=== PATIENT | female | born 1930 | race Caucasian/White ===

== ENCOUNTER 2016-09-28 21:52 | Inpatient (IN) | payer MEDICARE, MEDICAID ==
[~2016-09-28] VITALS: Ht 149.9 cm; Wt 65.5 kg
[2016-09-28 23:10] VITALS: BP 130/72; PULSE 69; RESP 18; O2SAT 97
[2016-09-28] MEDS ORDERED: Polyethylene Glycol (PEG) 17 Gm Powder PO PRN (23:45)
[2016-09-28] MEDS ORDERED: Ondansetron 2 mg/mL 2 mL Inj IVPUSH PRN (23:45)
[2016-09-28] MEDS ORDERED: Senna-Docusate 8.6-50 mg Tablet PO PRN (23:45)
[2016-09-28] MEDS ORDERED: 0.9% Sodium Chloride 1,000 ML IV SCH (23:45)
[2016-09-28] MEDS ORDERED: Atropine 1 mg/10 mL (Code) Syringe IVPUSH PRN (23:45)
[2016-09-28] MEDS ORDERED: Alum-Mag Hydrox-Simeth 30 mL Suspension PO PRN (23:45)
[2016-09-29] VITALS (8 sets, daily range): BP systolic 120–138; BP diastolic 60–73; PULSE 65–79; RESP 16–18; O2SAT 92–96
[2016-09-29] MEDS ORDERED: Heparin 5,000 Unit/mL Inj SUBQ SCH (00:30)
[2016-09-29] MEDS ORDERED: Heparin 25K Unit/500mL 0.45 NS 25,000 UNIT in IV Premix 1 EACH IV SCH (00:45)
[2016-09-29] MEDS ORDERED: Furosemide 10 mg/mL 4 mL Inj IVPUSH ONE (01:10)
[2016-09-29] MEDS ORDERED: Nitroglycerin 2% 1 Gm Ointment TOPICAL SCH (01:10)
--- NOTE | 2016-09-29 01:44 | PCM.HPMED ---
Subjective Date of Service Sep 29, 2016 Primary Provider: Admitting Physician: Fide Boudreaux DO Primary Care Physician: Yovani Attending Physician: Fide Boudreaux DO Admit Status: Direct Admit Chief Complaint: Dyspnea History of Present Illness: Very pleasant malian speaking only 85yo woman who resides at [facility] was sent to [facility] from there with increasing work of breathing. She has history of CAD, s/p stenting, CHF (type unknown), pacemaker , DM2. At [facility] she had an EKG remarkable for LBBB, borderline anterior wall ST elevations, troponin of 3.67, BNP of 2317, her vital signs were stable except for RR of 30. They tried to give her an aspirin but she choked on it and coughed it up. On admission here her vitals are T 36.4, HR 69 , RR 18 with O2 sat of 97 on 3L, BP 130/72. It is not clear if she is on home oxygen chronically. Review of Systems: Patient is tired and confused, gave a negative ROS to the nurse initially and 15 minutes later she was saying yes to almost everything. Allergies Coded Allergies: No Known Allergies (Unverified , 09/29/16) Home Medications Tylenol 325mg Refresh Optive eye drops, 1 drop TID Carvedilol 12.5mg BID Cetirizine 10mg daily Vitamin D3 1000 units daily Fluticasone 1 spray both nostrils daily Furosemide 40mg PO q2days Insulin Glargine 16units subq qhs Ipratropium bromide 15ml spray PRN Ketotifen Fumarate 5ml drops, 1 drop in each eye daily Lisinopril 5mg PO daily Lopaeramide 2mg PO daily PRN NItrofurantoin 100mg PO BID Omeprazole 20mg PO daily PMH CHF CAD HLD HTN DM2 on insulin GERD Alzheimer's Disease Surgical History s/p Stent Pacemaker Some abdominal surgery, unknown type Family History Unknown to son who is her DPOA Social History Hx Alcohol Use: No Hx Substance Use: No Hx Tobacco Use: No Living Arrangement: Intermediate Facility Exam Vital Signs Vital Sign - Last Date Time Temp Pulse Resp B/P Pulse Ox O2 Delivery O2 Flow Rate FiO2 09/29/16 00:07 72 09/28/16 23:10 36.4 18 130/72 97 Nasal Cannula 3.00 Exam General: Alert, Oriented X3, Cooperative, No Acute Distress Head: Normocephalic, atraumatic. External ears normal. Eyes: PERRLA, EOMI. Anicteric sclerae. Mouth: Mouth Normal, Mucous Membranes Moist/Cement Neck: Neck supple with full range of motion, JVD present. Chest & Lungs: Clear to auscultation bilaterally with no crackles, wheezes, or rhonchi, poor effort. Cardiovascular: Regular Rate/Rhythm, Normal S1, Normal S2, No Murmurs/Rubs/ Gallops Abdomen: Non-tender, Non-distended, No masses, Normoactive bowel tones, Soft Musculoskeletal: overview of extremities is normal Extremities: No cyanosis or clubbing. 1+ pitting edema bilaterally Neurological: Grossly Neurologically Intact, Cranial Nerves 2-12 Intact, Normal Speech Lab and Diagnostics Labs From [facility]: WBC 8.0 Hgb 11.2 Hct 35.7 Plt 208 PT 12.1 INR 1.1 Na 136 K+ 4.0 Cl 105 CO2 22 BUN 65 Cr 1.5 EGFR 33 Glc 465 Ca 8.6 LFTs nml except Alk Phos 203 Troponin 3.67 BNP 2317 UA negative X-Rays, CTs and MRIs CXR done at [facility] tonight: cardiomegaly, venous congestion 12-lead ECG SR with LBBB and borderline ST elevations in aVR, V1, V2 Assessment & Plan 85yo woman with complex medical history including CHF, CAD, HLD, HTN, DM2 presenting with Dyspnea at rest, NSTEMI with elevated troponins, possible CHF exacerbation. 1. NSTEMI, POA, with elevated troponin of 1.22 here and 3.67 at [facility]. The values from different labs do not indicate a trend necessarily. -Cardiology consulted, Dr Flores, and per his suggestions: ASA 81mg, Nitropaste 1 inch, Lasix 40mg IV, Echo ordered for morning -Cardiac Heparin protocol, statin, beta rodrick (cont carvedilol) -Dr Gamez will see patient in the morning. That is a hand off from Dr Flores. Please be sure she is aware of the patient. -NPO tonight and at breakfast awaiting Cardiology consult. Start heart healthy diabetic diet when appropriate. -Repeat Troponins ordered, CBC in morning. Lipid panel and HgbA1c. 2. Apparent chronic or acute kidney failure, POA, with BUN/Cr of 65/1.5. Family is not aware of this. Baseline is unknown. We need records from her SNF. -BMP in am. 3. CHF, POA, patient does have Lasix 40mg PO every other day. No scheduled dose today. -Echo in morning -Lasix 40mg IV. -Consider starting home Carvedilol 12.5mg PO daily 4. HTN reported, well controlled at present, awaiting Med Rec. -Hold Lisinopril now, pending receipt of baseline kidney function, BP wnl for now. 5. Diabetes Type 2, POA, only home medication is Lantus 16 units qhs -Give Lantus 8units now -Low dose correction insulin 6. POLST needs to be redone. The one in the chart from 2013 is full code and family has decided that DNR/DNI is more appropriate. 7. Dry eyes, POA. - Refresh eye drops and Ketotifen Fumarate eye drops available to patient. 8. GERD, POA, -pharmacy will replace Omeprazole. 9. Seasonal Allergies, POA -Zyrtec 10mg, Flonase, and Ipratroprium PRN continued PRN medications for nausea, heartburn, constipation: zofram, maalox, senna, miralax Pain Evaluation: Adequate Pain Control VTE Prophylaxis: Sub-Q Heparin (Unfractionated) Resuscitation Status: DNR/DNI:Do Not Resuscitate/Intubate Attending Statement The patient was seen and examined together with house staff on 09/29/2016 and I agree with the history, exam and plan as outlined in the note above. Ralph Hurley DO Sep 29, 2016 01:44 Fide Boudreaux DO Sep 29, 2016 03:46
[2016-09-29] MEDS: Sodium Chloride LOK Flush 10 mL Syringe IVFLUSH SCH ×4 (02:13→23:42)
[2016-09-29] MEDS ORDERED: Glucose 40% Oral Gel 15 Gm Tube PO PRN (02:20)
[2016-09-29 03:00] LABS: APPEARANCE,URINE CLEAR (CLEAR,HAZY); COLOR,URINE YELLOW (YELLOW); OCCULT BLOOD,URINE NEGATIVE (NEGATIVE); UROBILINOGEN,URINE NORMAL (NORMAL)
[2016-09-29] MEDS ORDERED: CETI10CA PO (03:18)
[2016-09-29] MEDS ORDERED: KETO5DRO60 BOTH_EYES (03:18)
[2016-09-29] MEDS ORDERED: CHOL100043 PO (03:18)
[2016-09-29] MEDS ORDERED: FURO-128 PO (03:18)
[2016-09-29] MEDS ORDERED: CALC500T9 PO (03:18)
[2016-09-29] MEDS ORDERED: NITR100 PO (03:18)
[2016-09-29] MEDS ORDERED: CARB15DR2 BOTH_EYES (03:18)
[2016-09-29] MEDS ORDERED: LISI-571 PO (03:18)
[2016-09-29] MEDS ORDERED: LOPE-147 PO (03:18)
[2016-09-29] MEDS ORDERED: IPRA15SP NS (03:18)
[2016-09-29] MEDS ORDERED: OMEP20CA11 PO (03:18)
[2016-09-29] MEDS ORDERED: FLUT15.88 NS (03:18)
[2016-09-29] MEDS ORDERED: INSU100V7 SUBQ (03:18)
[2016-09-29] MEDS ORDERED: ACET325T51 PO (03:18)
[2016-09-29] MEDS ORDERED: CARV12.52 PO (03:18)
[2016-09-29] MEDS ORDERED: Ipratropium 0.03% 30 mL Nasal Spray Bottle NASAL PRN (03:50)
--- NOTE | 2016-09-29 05:53 | NUR ---
Admit Pt arrived from [facility] via ambulance around 2330. Pt A&Ox3 and Croatian speaking only .Pt arrived with son, Gordon who is DPOA, at bedside and stated he was comfortable with translating. Nursing explained to son that at anytime he felt we needed an dramatic teacher to let us know. Pt seemed somewhat confused with answering some questions. Pt telling nursing she does not have any chest pain and then telling the DR that she did. Pt stated that she was having mild SOB and that was consistent. Pt son stating that she was very tired and can become delirious without any sleep. Family did not want an dramatic teacher to explain to pt all that was being done and what was going on at this time stating "it might cause her more stress than she needs" Nursing suggested that when the Day team was able to speak with the patient that the dramatic teacher be present and family exit the room so patient could fully answer questions and understand what was going on. Family agreeable to this. EKG done, Heparin gtt started at 800u/hr, 1 inch nitro paste applied and 40mg IVP lasix given. VSS and Tele SR 60's to 80's.
[2016-09-29 07:13] LABS: Mean Corpuscular Hemoglobin 27.5 pg (27.0-35.0); Mean Corpuscular Volume 88.7 fL (81-100)
[2016-09-29] MEDS: Insulin LISPRO 300 Unit/3 mL Inj SUBQ SCH ×4 (08:00→22:00)
[2016-09-29 08:06] LABS: TROPONIN T 1.45 ug/L (0.0-0.011)
[2016-09-29] MEDS: Heparin 5,000 Unit/mL Inj IVPUSH PRN ×2 (08:54→16:48)
[2016-09-29] MEDS: Pantoprazole 40 mg ER24 Tablet PO SCH (08:55)
[2016-09-29] MEDS: Nitrofurantoin Monohyd-Macrocryst 100 mg Capsule PO SCH ×2 (08:56→21:36)
[2016-09-29] MEDS: LacriLube S.O.P. 3.5 Gm Ophthalmic Ointment BOTH_EYES SCH ×3 (08:58→20:30)
[2016-09-29] MEDS: Naphazoline/Pheniramine 5 mL Ophthalmic Solution BOTH_EYES SCH ×3 (08:58→21:36)
[2016-09-29] MEDS: Fluticasone 0.05% 15 Spray/2 Gm 16 Gm Nasal Spray NASAL SCH (08:58)
--- NOTE | 2016-09-29 15:47 | NUR ---
Social Work: Initial Assessment / Readiness for d/c Data: Pt is an 85 y/o female admitted for non semi. pt's PCP is not listed. Pt's insurance is [facility] medicaid. EMR reviewed. Per rounds, pt has dementia, SPORTS BOOK BOARD ATTENDANT attempted to completed initial assessment with joy. Readmit score not listed. SPORTS BOOK BOARD ATTENDANT called pt's daughter, no answer, left a voice mail. SPORTS BOOK BOARD ATTENDANT called [facility] and spoke with RN, Lilly who states that pt has lived there since 2013 and uses a walker for mobility. Pt does not drive, has no hx of , no LTC or VA benefits, and is not a caregiver. [facility] states they can take her back when she is ready for d/c. SPORTS BOOK BOARD ATTENDANT will continue to follow. Assessment: Pt from SNF, LTC. Plan: Pt will d/c back to [facility] when medically stable, likely in 1-2 days per MD. [facility] states they can take her back when she is ready for d/c. SPORTS BOOK BOARD ATTENDANT will continue to follow. PORTILLO Adame Addendum: 09/29/16 at 1550 by LUIS ANTONIO CLAYTON Amended: Links added.
--- NOTE | 2016-09-29 16:05 | DRSVH ---
[facility] [address] [place] [address] Echocardiogram Report Name: DENIA TAYLOR MStudy Date: 09/29/2016 Height: 59 in Hospital Exam Location: [facility] Weight: 148 lb Gender: Female BSA: 1.6 m2 : 1930 Age: 85 yrs BP: 122/72 mmHg Reason For Study: Elevated Troponin, SOB Ordering Physician: HOSPITALIST SVHPerformed By: Lobito Rose Referring Physician: AMBER HUNTLEY Interpretation Summary The left ventricle is moderately dilated. Left ventricular systolic function is severely reduced. The ejection fraction is estimated to be 20-25%. There is moderate to severe global hypokinesis with akinesis along the inferior and inferolateral wall. Assessment of diastolic parameters suggests a pseudonormalization pattern, consistent with elevated filling pressures. The E/E' ratio is severely increased, suggesting possible increased filling pressures. The right ventricle is borderline dilated. There is a pacemaker lead in the right ventricle. Right ventricular systolic function is moderately reduced. The right ventricular systolic pressure is estimated at 67 mmHg assuming a right atrial pressure of 8 mm Hg. The left atrium is moderately dilated. The right atrium is mildly dilated. There is severe mitral regurgitation. There is mild to moderate aortic regurgitation. There is no other significant valvular heart disease. The aortic root is normal size. Procedure: A two-dimensional transthoracic echocardiogram with color flow and Doppler was performed. The study quality was technically adequate. There is no prior echocardiogram noted for this patient. The patient was in normal sinus rhythm during the exam. The heart rate ranged between 70-75 bpm during the study. Left Ventricle: The left ventricle is moderately dilated. Left ventricular wall thickness is at the upper limits of normal. Left ventricular systolic function is severely reduced. The ejection fraction is estimated to be 20- 25%. There is moderate to severe global hypokinesis of the left ventricle. There is moderate to severe global hypokinesis with akinesis along the inferior and inferolateral wall. Assessment of diastolic parameters suggests a pseudonormalization pattern, consistent with elevated filling pressures. The E/E' ratio is severely increased, suggesting possible increased filling pressures. Right Ventricle: The right ventricle is borderline dilated. There is a pacemaker lead in the right ventricle. Right ventricular systolic function is moderately reduced. Atria: The left atrium is moderately dilated. The right atrium is mildly dilated. There is a catheter/pacemaker lead seen in the right atrium. The interatrial septum is intact with no evidence for an atrial septal defect. Mitral Valve: The mitral valve leaflets appear borderline thickened, but open well. There is severe mitral regurgitation. Aortic Valve: The aortic valve is trileaflet. The aortic valve is slightly calcified. There is mild to moderate aortic regurgitation. Tricuspid Valve: The tricuspid valve is not well visualized, but is grossly normal. There is mild tricuspid regurgitation. The right ventricular systolic pressure is estimated at 67 mmHg assuming a right atrial pressure of 8 mm Hg. Pulmonic Valve: The pulmonic valve leaflets are thin and pliable; valve motion is normal. There is mild pulmonic regurgitation. There is no other significant valvular heart disease. Great Vessels: The aortic root is normal size. The dimensions of the ascending aorta are normal. The pulmonary artery is normal size. The IVC is dilated (diameter is greater than 2.1 cm) yet it collapses greater than 50% with a sniff. This suggests a right atrial pressure of 8 mm Hg. Pericardium/ Pleura There is no pericardial effusion. There is no pleural effusion. MMode/2D Measurements & Calculations LVIDd: 6.0 cm RA long axis LVOT diam: 1.9 cm LVIDs: 5.3 cm LA A2 area: 20.5 cm Ao root diam FS: 12.8 % LA A4 area: 19.3 cm RA area IVSd: 1.00 cm LA length (vol) asc Aorta Diam LVPWd: 0.94 cm : 18.5 cm LA vol: 71.1 ml RA vol Ao Arch Diam (Prox LA vol index : 56.3 ml Trans): 2.8 cm RA : 34.7 mm2 IVC diam: 2.2 cm LV mott. diameter/BSA LV sys. diameter/BSA RVD1 (basal) (cm/m^2): 3.7 (cm/m^2): 3.2 Doppler Measurements & Calculations Ao V2 max MV E max brian MV E/A: 1.5 TR max brian : 103.6 cm/sec : 112.5 cm/sec Med Peak E' Brian : 383.2 cm/sec Ao max P.3 mmHgMV A max brian TR max PG Ao mean PG : 74.1 cm/sec E/E' med: 48.9 : 58.7 mmHg Lat Peak E' Brian PA V2 max LVOT Max Brian MR ERO: 0.11 cm2 : 54.6 cm/sec : 61.8 cm/sec E/E' lat: 68.8 PA mean PG E/e' average : 0.63 mmHg HARLAN(I,D): 1.5 cm sev ratio: 0.52 AI P1/2t : 323.9 msec AI dec slope : 277.9 cm/s2c MV dec time Ao V2 mean LV V1 max PG MR flow rate : 0.17 sec : 68.7 cm/sec : 53.4 cm3/sec Ao V2 VTI: 19.6 cm LV V1 VTI MR PISA radius HARLAN(V,D): 1.7 cm2 : 10.1 cm PA V2 mean HARLAN indexed to BSA : 37.6 cm/sec (cm^2/m^2): 0.90 PA pr(Accel) : 43.6 mmHg Reading Physician:ZOEY
[2016-09-29] MEDS: Insulin GLARgine 100 Unit/mL Syringe SUBQ SCH (21:35)
[2016-09-30] VITALS (7 sets, daily range): BP systolic 122–144; BP diastolic 48–70; PULSE 63–72; RESP 16–24; O2SAT 94–98
--- NOTE | 2016-09-30 02:35 | CONS ---
[address] [address] CONSULTATION REPORT PATIENT: DENIA TAYLOR : 1930 MR#: [id number] ADMIT: 09/28/2016 JOB ID: [id number] DATE OF SERVICE: 09/29/2016 CHIEF COMPLAINT: Cough and hypoxia. HISTORY OF PRESENT ILLNESS: The patient is an 85-year-old woman. She lives in memory care facility, [facility]. She is mostly limited by dementia. The staff at [facility] noted worsening shortness of breath, hypoxemia and cough. They referred her to [facility]. Over there, radiograph demonstrated cardiomegaly and pulmonary edema, and she was transferred to [facility] for further evaluation and management. PAST MEDICAL HISTORY: 1. The patient does not know her past medical history. She is accompanied today by her son, Dewayne. Son says that she has been diagnosed with unknown heart problems in [place] and underwent dual-chamber ICD implant over there. Subsequently, she has been closely monitored by Dr. Lino. 2. Diabetes on insulin. 3. Hypertension. 4. Hyperlipidemia. 5. Dementia. 6. Unknown abdominal surgery. FAMILY HISTORY: Son does not know. SOCIAL HISTORY: Does not smoke. Does not drink. Lives in [facility], [facility]. ROS: unable to obtain due to confusion HOME MEDICATIONS: Obtained from medication administration record, include: 1. Lasix 40 mg by mouth every other day. 2. Carvedilol 12.5 mg twice a day. 3. Lisinopril 5 mg daily. 4. Lantus 15 units under the skin daily. 5. Zyrtec. 6. Omeprazole 20 mg daily. 7. Macrobid. CURRENT MEDICATIONS HERE IN THE HOSPITAL: 1. Lipitor 40 mg daily. 2. Carvedilol 12.5 mg twice a day. 3. Nitrofurantoin 100 mg twice a day. 4. Lantus 8 units every evening. 5. Subcu heparin. ACS protocol. 6. Lasix 40 mg by mouth every other day. 7. Aspirin 81 mg daily. 8. Protonix 40 mg daily. PHYSICAL EXAMINATION: A very elderly, pleasant woman, lying flat in bed. No apparent distress. Temperature 37 degrees. Blood pressure 120/68, up to 138/71. Pulse 65, up to 79 beats per minute. Satting 92% to 96% on room air. Eyes: No scleral icterus. Neck: Supple. No carotid bruits. Heart normal S1, S2. No murmurs, rubs, or gallops. Lungs: Clear to auscultation anteriorly. Abdomen: Soft, positive bowel sounds. No hepatosplenomegaly. Extremities: Warm, well perfused. No clubbing, cyanosis, edema. Skin: No rashes or lesions. Radiograph from [facility] was reviewed. On personal review, it demonstrates cardiomegaly, bilateral interstitial opacities and dual-chamber ICD. Echocardiogram September 29 shows EF about 20% to 25% with moderate to severe global hypokinesis, akinesis along the inferior and inferolateral wall, stage II diastolic dysfunction, borderline RV dilation, RV estimated pulmonary artery systolic pressure 67 mmHg, assuming right atrial pressure 8 mmHg, severe mitral regurgitation, mild to moderate aortic regurgitation. EKG shows left bundle-branch block. Her creatinine is 1.3. She is mildly anemic, hematocrit is 35%. Troponin T was most recently 1.45. Lipids at goal. Total cholesterol 117, triglycerides 79, HDL 36, LDL 65. ASSESSMENT AND PLAN: This is an 85-year-old woman who comes in with left bundle-branch block of unknown chronicity and elevated troponin in the setting of what sounds like previously documented heart problem with obviously either history of [id number] cardiac arrest or cardiomyopathy severe enough where internal cardioverter-defibrillator implant for primary prevention was indicated. The property and equipment clerk is working hard to get the records from Dr. Lino's office so I can understand a little bit more about her cardiovascular history. 1. [id number] myocardial infarction: It is unknown whether left bundle-branch block is old or new. Will request prior EKG. Either way, left bundle-branch block is no longer STEMI criteria. She has significantly elevated troponin, but given her dementia not a good candidate for interventional therapy. I agree with medical therapy. Aspirin, Lipitor, heparin drip for 48 hours, but it can be discontinued in the morning on October 01, 2016. 2. Cardiomyopathy: She appears dry and euvolemic on exam. Continue Lasix, carvedilol. I see that lisinopril is on hold due to renal insufficiency and will have a low threshold to restart it depending on how that looks. 3. Diabetes: Closely monitored by hospitalist physician. Diabetes is uncontrolled. Most recent hemoglobin A1c is 9.5%. 4. Hyperlipidemia: Lipids are at goal. Even though it does not appear that she was on a statin as an outpatient, I agree with initiating statin, but I think 40 mg daily might be a little too strong. I think 10 mg daily is a good option for her. 5. Device management: It is unknown what brand device she has. Hopefully, once we get those records from Dr. Lino. We will be able to have a better idea of the best way to manage her device and whether the device needs to be interrogated depending on when it was last checked. Thank you very much for the opportunity to evaluate this patient. HIRO
--- NOTE | 2016-09-30 05:39 | NUR ---
NOC PT was oriented and cooperative at start of shift. However, as the night went on pt has been increasingly restless and less cooperative. Her daughter stayed and has been assisting with care. PT voids in BSC. Noted to have dyspnea with any exertion. PT is on 2lNC. Lung are diminished at bases. Pt is in NSR with OVCD and occasional pvc's noted. BG at HS was 131. PT is on heparin gtt and we are waiting on most recent lab value to adjust rate if needed. PT denies any CP or general pain. HEr IV is covered because of her restlessness and slight pulling of tubes. PT has still not had BM to [facility]. Will CTM.
[2016-09-30] MEDS: Pantoprazole 40 mg ER24 Tablet PO SCH (06:01)
[2016-09-30] MEDS: Insulin LISPRO 300 Unit/3 mL Inj SUBQ SCH ×4 (08:00→21:38)
[2016-09-30 10:27] LABS: BASOPHILS % (AUTO) 0.3 % (0-3); EOSINOPHILS % (AUTO) 3.1 % (0-5); MONOCYTES % (AUTO) 7.9 % (4-12); Mean Corpuscular Hemoglobin 27.8 pg (27.0-35.0); Mean Corpuscular Volume 88.6 fL (81-100); NEUTROPHILS % (AUTO) 70.5 % (40-74); Platelet Count 251 bil/L (150-400)
[2016-09-30] MEDS: LacriLube S.O.P. 3.5 Gm Ophthalmic Ointment BOTH_EYES SCH ×3 (10:39→20:30)
[2016-09-30] MEDS: Sodium Chloride LOK Flush 10 mL Syringe IVFLUSH SCH ×3 (10:40→21:39)
[2016-09-30] MEDS: Naphazoline/Pheniramine 5 mL Ophthalmic Solution BOTH_EYES SCH ×2 (10:40→20:30)
[2016-09-30] MEDS: Fluticasone 0.05% 15 Spray/2 Gm 16 Gm Nasal Spray NASAL SCH (10:40)
[2016-09-30] MEDS: Nitrofurantoin Monohyd-Macrocryst 100 mg Capsule PO SCH (10:41)
--- NOTE | 2016-09-30 14:14 | DRSVH ---
PROCEDURE: X-RAY CHEST ONE VIEW, PORTABLE ([id number]) INDICATIONS: sob, cough TECHNIQUE: One view of the chest was acquired. COMPARISON: [facility], , CHEST 1 VIEW, 08/18/2015, 3:52. FINDINGS: Surgical changes and devices: Cardiac pacemaking device with dual chamber leads appears normal. Lungs and pleura: No pleural effusions or pneumothorax. Lungs are abnormal with a mild interstitial prominence that now appears overlain by mild pulmonary edema. Mediastinum: Mediastinal contours appear normal. Heart size is mildly enlarged, compared to the odette or study from August of last year. Bones and chest wall: No suspicious bony lesions. Overlying soft tissues appear unremarkable. IMPRESSION: Chronic interstitial prominence with mild acute CHF causing mild pulmonary edema to be rowe perimposed. Pacemaking device and dual chamber leads appear normal Dictated by: Joseph Skelton M.D. on 09/30/2016 at 14:09 Approved by: Joseph Skelton M.D. on 09/30/2016 at 14:12
--- NOTE | 2016-09-30 14:33 | PCM.PNMED ---
Subjective Date of Service Sep 30, 2016 Subjective Patient slept through the night. Family is by bedside. Patient has worsening cough and shortness of breath, otherwise no new problems or concerns. Exam Vital Signs Vital Sign - Last Date Time Temp Pulse Resp B/P Pulse Ox O2 Delivery O2 Flow Rate FiO2 09/30/16 11:07 36.4 68 16 134/70 95 Nasal Cannula 2.00 Intake and Output 09/29/16 09/29/16 09/30/16 Cumulative From/Thru 15:00 23:00 07:00 09/28/16 23:09 - 09/30/16 05:55 Intake Total 460 ml 218 ml 678 ml Output Total 1150 ml 200 ml 2050 ml Balance -690 ml 18 ml -1372 ml Intake Oral 300 ml 0 ml 300 ml IV Total 160 ml 218 ml 378 ml Output Urine Total 1150 ml 200 ml 2050 ml # Voids 1 1 # Bowel Movements 0 0 Exam General: patient is comfortably sleeping in bed this morning in no acute distress Neck: Neck supple, jugulo venous distention present. Chest & Lungs: Mild wheezing anteriorly. Cardiovascular: Regular Rate/Rhythm, No Murmurs/Rubs/Gallops Abdomen: Non-tender, Non-distended, No masses, Normoactive bowel tones, Soft Extremities: No cyanosis or clubbing. 1+ pitting edema bilaterally Lab and Diagnostics Result Diagram: 09/30/16 1015 09/30/16 1015 X-Rays, CTs and MRIs CXR done at [facility] tonight: cardiomegaly, venous congestion 12-lead ECG SR with LBBB and borderline ST elevations in aVR, V1, V2 Cardiac Echo Impressions Echocardiogram Report Interpretation Summary The left ventricle is moderately dilated. Left ventricular systolic function is severely reduced. The ejection fraction is estimated to be 20-25%. There is moderate to severe global hypokinesis with akinesis along the inferior and inferolateral wall. Assessment of diastolic parameters suggests a pseudonormalization pattern, consistent with elevated filling pressures. The E/E' ratio is severely increased, suggesting possible increased filling pressures. The right ventricle is borderline dilated. There is a pacemaker lead in the right ventricle. Right ventricular systolic function is moderately reduced. The right ventricular systolic pressure is estimated at 67 mmHg assuming a right atrial pressure of 8 mm Hg. The left atrium is moderately dilated. The right atrium is mildly dilated. There is severe mitral regurgitation. There is mild to moderate aortic regurgitation. There is no other significant valvular heart disease. The aortic root is normal size. Reading Physician:PM Assessment & Plan Vane Clarke is a 85 year old woman with complex medical history including congestive heart failure, coronary artery disease, hyperlipidemia, hypertension , diabetes mellitus type 2 presenting with dyspnea at rest, NSTEMI with elevated troponins, possible congestive heart failure exacerbation. 1. Mlr-TP-sdjkzadqg myocardial infarction, present on admission. Active -Elevated troponin of 1.22 here and 3.67 at [facility]. The values from different labs do not indicate a trend necessarily -Given her dementia, not a good candidate for interventional therapy -Cardiology consulted, continue aspirin, heparin drip x 48 hours total and start lipitor -ECHO revealed ejection fraction of 20-25% and moderate to severe global hypokinesis with akinesis along the inferior and inferolateral wall 2. Chronic or acute kidney failure, present on admission. Improved -Improved BUN and creatinine today -Continue to monitor 3. Cardiomyopathy, present on admission. Stable -Patient euvolemic now -Continue home carvedilol and lasix -Restart lisinopril tomorrow id renal function improves 4. Hypertension, chronic. Stable -Well controlled at present -Consider restarting lisinopril when kidney function back to normal baseline 5. Diabetes mellitus type 2, present on admission. Active -On lantus 16 units at home before bedtime -Continue low dose correction insulin -A1c 9.5% 6. Hyperlipidemia, chronic. Stable -Lipids are at goal even though patient is not on statin therapy -Start lipitor 10 mg daily by mouth 7. Dry eyes, present on admission. Stable - Refresh eye drops and ketotifen fumarate eye drops available to patient 8. Gastroesophageal reflex, present on admission. Stable -Pharmacy will replace Omeprazole 9. Seasonal Allergies, present on admission. Stable -Zyrtec 10mg, flonase, and ipratroprium as needed 10. POLST needs to be redone. The one in the chart from 2013 is full code and family has decided that DNR/DNI is more appropriate PRN medications for nausea, heartburn, constipation: zofram, maalox, senna, miralax Disposition: SNF tomorrow Pain Evaluation: Adequate Pain Control VTE Prophylaxis: Sub-Q Heparin (Unfractionated) Resuscitation Status: DNR/DNI:Do Not Resuscitate/Intubate Attending Statement The patient was seen and examined together with Dr. Vieira on 09/30/2016 and I agree with the history, exam and plan as outlined in the note above. . Mary Kay Vieira DO Sep 30, 2016 14:33 Santi Hand MD Oct 01, 2016 10:00
--- NOTE | 2016-09-30 16:23 | NUR ---
Blood Sugar With held am insulin with a blood glucose of 200 due to the pt being so sleepy and not wanting to eat. Rechecked Blood sugar for lunch and it was 128.
[2016-09-30] MEDS ORDERED: Furosemide 10 mg/mL 4 mL Inj IVPUSH ONE (19:30)
--- NOTE | 2016-09-30 21:01 | PROG NOTE ---
[address] [address] PROGRESS NOTE PATIENT: DENIA TAYLOR : 1930 MR#: [id number] ADMIT: 09/28/2016 JOB ID: [id number] DATE: 09/30/2016 CHIEF COMPLAINT: Hypoxia and shortness of breath. SUBJECTIVE: The patient's breathing is improved. She is able to lay flat. She is quite sleepy. She did not want to eat. She is accompanied today by her daughter, Jazzy, and another daughter whose name escapes me at the moment. They say that the patient is closely monitored by Dr. Lino and that she has been getting all her medications at the [facility] where she resides. OBJECTIVE: Vital signs: Temperature 36.7, blood pressure 122/48, up to 134/70, pulse 63 up to 72 beats per minute, satting 94% to 99% on 2 liters nasal cannula. I's and O's. She is out more than in by 1.3 L and her weight based on the built-in scale is stable. CURRENT MEDICATIONS: 1. Aspirin 81 mg daily. 2. Lipitor 10 mg daily. 3. Lasix 40 mg by mouth every other day. 4. Heparin drip per ACS protocol. 5. Carvedilol 12.5 mg twice a day. 6. Lisinopril 5 mg daily. 7. Lantus 8 units every evening. 8. Protonix 40 mg daily. EXAM: Elderly woman lying flat in bed asleep in no apparent distress. Eyes: No scleral icterus. Neck is supple. No carotid bruits. Heart: Normal S1, S2. No murmurs. Lungs: Clear to auscultation anteriorly. Abdomen is soft, positive bowel sounds. No hepatosplenomegaly. Extremities: Mild edema bilaterally. ASSESSMENT AND PLAN: This is a delightful, 85-year-old woman with multiple cardiovascular conditions that we just learned about from Dr. Lino's detailed notes. 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 She also has old left bundle-branch block, moderate mitral regurgitation, history of right lower lobe pulmonary embolism, previously on warfarin but no longer on its own. In terms of device management, I did a device check. It turns out this is a Biotronik dual-chamber ICD which was implanted in [place] in 2011. I do not believe this is a biventricular cardiac resynchronization therapy device. Briefly, this is a Lumax 540 device. She is programmed in DDD mode with lower rate limit of 60 beats per minute, upper tracking rate 130 beats per minute. I changed it to DDDR mode, because she was getting a little bradycardic here and, historically, she has been 100% atrially sensed and 97% RV sensed and 3% RV paced. Her histogram shows that the heart rate is in the 60-70 beats per minute range for the most part. She has three tachytherapy zones, zone for rate 150-162 beats per minute is just monitoring zone, 162-188 beats per minute has three bursts, three ramps and then shocks. VF zone for rate greater than 188 beats per minute shows bursts and then multiple shocks. In terms of coronary artery disease, the patient will be managed medically. Her troponin T was most recently 1.45 in the setting of normal kidney function. The patient had evidence of volume overload initially, but she seems to have responded favorably to brief therapy with Lasix and she is not having any distress right now. I do not think she is a good interventional candidate due to her memory problems, and she has lived in [facility] a long time. Her lipids were at goal even though she is not on statins. But, technically since she did have coronary artery disease, I think it is reasonable to start her on low-dose statin Lipitor 10 mg daily. Her transaminases are normal. Left bundle branch block-so I think that this patient in hindsight may have benefitted from cardiac resynchronization therapy. Now, I think her prognosis is informed more by her cognitive impairment and less so by her cardiovascular issues. I think as an outpatient she can discuss with her primary beater room helper whether her device needs to be upgraded, but my impression is probably not. Cardiomyopathy-patient has, I think, a combination of ischemic and nonischemic cardiomyopathy. Her most recent echocardiogram performed September 29 demonstrated ejection fraction of 20-25% with inferior and inferolateral akinesis, stage 2 diastolic dysfunction, borderline RV enlargement. Pulmonary artery systolic pressure at 67 mmHg, assuming a right atrial pressure of 8 mmHg and she also has associated severe mitral regurgitation in the setting of annular dilation. Her left ventricle is moderately dilated with left ventricular end-diastolic dimension of 6 cm. She is on excellent outpatient medical regimen including loop diuretic, carvedilol, lisinopril and will continue these medications in the hospital. She will complete her 48 hour course of IV heparin tomorrow morning, October 01, 2016, and we can discharge her at that time. In terms of volume status, she appears to be euvolemic. She is on Lasix p.o. only. Device management: Patient has not had a device check since January 2016. It sounds like the family and patient were instructed to do a device check, but they just had not gotten a chance to bring mom in. We talked about how remote checks can help her management in the future. We also talked about her wishes with respect to tachytherapy and whether the family feels like she truly would like to have ICD discharges if she develops ventricular tachycardia. Their initial reaction was to go ahead and turn off tachytherapy, but I counseled them against it. I advised that I think it would be better to discuss it with Dr. Lino as an outpatient. I did not do capture threshold testing or sensitivity check. I defer further detailed device checks to primary beater room helper, Dr. Lino. History of hyperkalemia. Apparently, drug titration in the past was limited by hyperkalemia which is why she is not on spironolactone. She is able to tolerate lisinopril 5 mg daily as an outpatient at home and will continue that. Thank you very much for the opportunity to participate in her care. I will go ahead and sign off at this time, but I am available for questions.
--- NOTE | 2016-09-30 21:04 | PROCED ---
[address] [address] PROCEDURE NOTE PATIENT: DENIA TAYLOR : 1930 MR#: [id number] ADMIT: 09/28/2016 JOB ID: [id number] DATE OF SERVICE: 09/30/2016 POSTOPERATIVE DIAGNOSIS(ES): PREOPERATIVE DIAGNOSIS(ES): SURGEON: Betty Gamez MD INDICATIONS FOR DEVICE CHECK: This is an 85-year-old woman admitted with acute decompensated heart failure and she happens to have a Biotronik dual-chamber ICD. Briefly, this is a Blue Max 540 ICD implanted October 16, 2011 and most recently checked in January 2016. She is 100% A sensed. She is 97% V sensed and 3% V paced. Histogram is normal with a rate between 60 and 70. Her mode is VDD with lower rate limit 60 beats per minute, upper tracking rate 130 beats per minute. I changed it to DDDR because she is having a little bit of bradycardia in the hospital, and I have adjusted her AV delay from 130-180 to 150-200 to minimize the risk of RV pacing. Her atrial lead sensitivity is 0.3 mV. Her output is 2.8 V at 0.4 msec. Ventricular lead sensitivity is programmed at 0.8 mV. Her output is 2 V at 0.4 msec. She has three tachytherapy zones, 150-162 beats per minute at monitoring zone, 162-188 beats per minute VT zone with three burst, three ramps and defibrillation shocks and VF zone for rate greater than 188 beats per minute with a single burst followed by shocks. ADJUSTMENTS MADE: I changed the mode from VDD to DDDR. The family had serious reservations about leaving tachytherapy on, but I encouraged them to leave it alone for now and just discuss it with primary electrician control equipment as an outpatient. Thank you very much for the opportunity to participate in her care.
[2016-09-30] MEDS: Insulin GLARgine 100 Unit/mL Syringe SUBQ SCH (21:38)
[2016-10-01] VITALS (8 sets, daily range): BP systolic 131–149; BP diastolic 61–85; PULSE 60–76; RESP 16–24; O2SAT 95–99
[2016-10-01 03:49] LABS: Mean Corpuscular Hemoglobin 27.5 pg (27.0-35.0); Mean Corpuscular Volume 88.8 fL (81-100)
--- NOTE | 2016-10-01 06:08 | NUR ---
Mentation At approx. 1900, call light on and pt ambulated to [facility] with 1PA to urinate; stable, responsive, and cooperative with care. After situating patient back in bed from [facility], pt fell asleep and became nonrousable despite interventions for rest of shift. HS care provided while patient sleeping; PO meds held r/t pt unable to wake up. Pt nonresponsive to strong stimuli, though sleep-talks and moves in bed. VSS, pt breathing stably. At approx. 0430, pt began to have episode of intense sleep-talking including screaming and agitation; per daughter, pt was distressed due to thinking her children were little again and being punished. Resolved after approx. 30min. Pt incontinent of urine x2 to brief this shift. Cold to touch, but refuses blankets.
[2016-10-01] MEDS: Insulin LISPRO 300 Unit/3 mL Inj SUBQ SCH ×4 (08:00→21:09)
[2016-10-01] MEDS: LacriLube S.O.P. 3.5 Gm Ophthalmic Ointment BOTH_EYES SCH ×3 (08:15→20:30)
[2016-10-01] MEDS: Pantoprazole 40 mg ER24 Tablet PO SCH (08:15)
[2016-10-01] MEDS: Fluticasone 0.05% 15 Spray/2 Gm 16 Gm Nasal Spray NASAL SCH (08:16)
[2016-10-01] MEDS: Naphazoline/Pheniramine 5 mL Ophthalmic Solution BOTH_EYES SCH ×2 (08:16→20:30)
[2016-10-01] MEDS: Sodium Chloride LOK Flush 10 mL Syringe IVFLUSH SCH ×3 (08:16→21:10)
--- NOTE | 2016-10-01 08:32 | NUR ---
Confusion Pt alert this morning and talking with son but is confused and not making sense. She will not follow my commands or some of the commands asked by her son. Also noted a slight left side lip droop and left arm weakness when asked to squeeze my fingers. I do not know if this is because she thinks shes sqeezing or if she isn't cooperating. Discussed with Resident my concerns and she will round with team shortly. Heparin drip still running at 875 un/hour, PTT is therapeutic. Son at bedside. Vitals stable and blood glucose is 137. Will continue to monitor.
--- NOTE | 2016-10-01 10:30 | PCM.PNMED ---
Subjective Date of Service Oct 01, 2016 Subjective Patient remains confused for the most night and this morning. She is awake, however she does not follow commands and does not make sense. Her speech is slurred according to her son. A slight left side lip droop noted this morning during rounds. Heparin drip still running at 875 un/hour, PTT is therapeutic. Son at bedside. Vitals stable and blood glucose is 137. Exam Vital Signs Vital Sign - Last Date Time Temp Pulse Resp B/P Pulse Ox O2 Delivery O2 Flow Rate FiO2 10/01/16 08:48 36.6 69 20 147/67 98 Nasal Cannula 2.00 Intake and Output 09/30/16 09/30/16 10/01/16 Cumulative From/Thru 15:00 23:00 07:00 09/28/16 23:09 - 10/01/16 06:19 Intake Total 717 ml 210 ml 1605 ml Output Total 750 ml 200 ml 3000 ml Balance -33 ml 10 ml -1395 ml Intake Oral 520 ml 0 ml 820 ml IV Total 197 ml 210 ml 785 ml Output Urine Total 750 ml 200 ml 3000 ml # Voids 4 5 # Bowel Movements 0 Exam General: patient is awake but confused and does not follow commands Neck: Neck supple Chest & Lungs: Mild wheezing anteriorly Cardiovascular: Regular Rate/Rhythm, No Murmurs/Rubs/Gallops Abdomen: Non-tender, Non-distended, Normoactive bowel tones, Soft Extremities: No cyanosis or clubbing. No edema noted Neuro: Slight left side lip droop, slurred speech, moving both upper extremities Lab and Diagnostics Result Diagram: 10/01/16 0336 10/01/16 0336 X-Rays, CTs and MRIs CXR done at [facility] tonight: cardiomegaly, venous congestion 12-lead ECG SR with LBBB and borderline ST elevations in aVR, V1, V2 Cardiac Echo Impressions Echocardiogram Report Interpretation Summary The left ventricle is moderately dilated. Left ventricular systolic function is severely reduced. The ejection fraction is estimated to be 20-25%. There is moderate to severe global hypokinesis with akinesis along the inferior and inferolateral wall. Assessment of diastolic parameters suggests a pseudonormalization pattern, consistent with elevated filling pressures. The E/E' ratio is severely increased, suggesting possible increased filling pressures. The right ventricle is borderline dilated. There is a pacemaker lead in the right ventricle. Right ventricular systolic function is moderately reduced. The right ventricular systolic pressure is estimated at 67 mmHg assuming a right atrial pressure of 8 mm Hg. The left atrium is moderately dilated. The right atrium is mildly dilated. There is severe mitral regurgitation. There is mild to moderate aortic regurgitation. There is no other significant valvular heart disease. The aortic root is normal size. Reading Physician:PM Assessment & Plan Vane Clarke is a 85 year old woman with complex medical history including congestive heart failure, coronary artery disease, hyperlipidemia, hypertension , diabetes mellitus type 2 presenting with dyspnea at rest, NSTEMI with elevated troponins, possible congestive heart failure exacerbation. 1. Confusion and slurred speech, not present on admission. Active -Suspect ARSENIO, CVA, UTI -CT brain without contrast -UA pending 2. Dtx-CZ-visxicqrd myocardial infarction, present on admission. Active -Elevated troponin of 1.22 here and 3.67 at [facility]. The values from different labs do not indicate a trend necessarily -Given her dementia, not a good candidate for interventional therapy -Cardiology consulted, continue aspirin, heparin drip stopped after 48 hours. -Continue lipitor 10 mg daily -ECHO revealed ejection fraction of 20-25% and moderate to severe global hypokinesis with akinesis along the inferior and inferolateral wall 3. Chronic or acute kidney failure, present on admission. Improved -Improved BUN and creatinine today -Continue to monitor 4. Cardiomyopathy, present on admission. Stable -Patient euvolemic now -Continue home carvedilol and lasix -Restart lisinopril tomorrow id renal function improves 5. Hypertension, chronic. Stable -Well controlled at present -Consider restarting lisinopril when kidney function back to normal baseline 6. Diabetes mellitus type 2, present on admission. Active -On lantus 16 units at home before bedtime -Continue low dose correction insulin -A1c 9.5% 7. Leukocytosis, not present on admission. Active -Suspected UTI -UA ordered 8. Hyperlipidemia, chronic. Stable -Lipids are at goal even though patient is not on statin therapy -Start lipitor 10 mg daily by mouth 9. Dry eyes, present on admission. Stable - Refresh eye drops and ketotifen fumarate eye drops available to patient 10. Gastroesophageal reflex, present on admission. Stable -Pharmacy will replace Omeprazole 11. Seasonal Allergies, present on admission. Stable -Zyrtec 10mg, flonase, and ipratroprium as needed 12. POLST needs to be redone. The one in the chart from 2013 is full code and family has decided that DNR/DNI is more appropriate PRN medications for nausea, heartburn, constipation: zofram, maalox, senna, miralax Disposition: SNF tomorrow pending clinical course VTE Prophylaxis: Sub-Q Heparin (Unfractionated) Resuscitation Status: DNR/DNI:Do Not Resuscitate/Intubate Attending Statement The patient was seen and examined together with House Staff/Resident on 10/01/16 and I agree with the history, exam and plan as outlined in the note above. Mary Kay Vieira DO Oct 01, 2016 10:30 Sg Zepeda Oct 05, 2016 19:19
--- NOTE | 2016-10-01 10:55 | NUR ---
TERENCE: Patient currently out of room for procedure, follow up later in day/ tomorrow
--- NOTE | 2016-10-01 11:05 | DRSVH ---
PROCEDURE: CT BRAIN WITHOUT CONTRAST ([id number]) INDICATIONS: 85 year-old female with slurred speech. TECHNIQUE: Noncontrast 4.5 mm thick angled axial sections acquired from the foramen magnum to the vertex, with c oronal reformats. COMPARISON: [facility], CT, HEAD WITHOUT CONTRAST, 08/18/2015, 3:38. [facility], RG, CT HEAD W/O CONTRAST, 04/27/2014, 16:44. FINDINGS: Image quality: Excellent. CSF spaces: Basal cisterns are patent. No extra-axial fluid collections. Ventricles are normal in size and shape. Brain: No midline shift. 2.8 x 2.2 x 1.9 cm hyperdense extracranial mass is again noted adjacent to the medial right frontal lobe, with nearby white matter edema. There is background periventricular an d deep white matter chronic small vessel ischemic change. There is intracranial internal carotid marya ry atherosclerosis. Skull and face: Calvarium and visualized facial bones are intact, without suspicious lesions. Anteri or interhemispheric falx ossification is again noted. Sinuses: Visualized sinuses and mastoids are clear. IMPRESSION: 1. No acute intracranial abnormalities. Periventricular and deep white matter chronic small vessel is chemic change. 2. 2.2 x 2.8 x 1.9 cm meningioma adjacent to the medial right frontal lobe appears slightly larger si nce August 2016. Dictated by: Addison Bean M.D. on 10/01/2016 at 10:59 Approved by: Addison Bean M.D. on 10/01/2016 at 11:04
--- NOTE | 2016-10-01 12:26 | PROG NOTE ---
[address] [address] PROGRESS NOTE PATIENT: DENIA TAYLOR : 1930 MR#: [id number] ADMIT: 09/28/2016 JOB ID: [id number] DATE: 10/01/2016 CHIEF COMPLAINT: Altered mental status. SUBJECTIVE: The patient was doing fine yesterday, but this morning she developed worsening mental status changes and confusion. She had imaging which showed slightly progressed meningioma in the left superior portion of the brain but no evidence of acute stroke. There is concern that she has urinary tract infection, and I pointed out that she just completed a course of antibiotic therapy for urinary tract infection yesterday. OBJECTIVE: Vital signs reviewed, afebrile. Patient is delirious, confused. She is talking about hot sauce and how she needs to lie down, yet she is already lying down. Welsh interpretation is provided by her son, Dewayne. Eyes: No scleral icterus. Neck is supple. No carotid bruits. Heart: Normal S1, S2. No murmurs. Lungs with diminished breath sounds at the left lung base anteriorly but difficult to obtain good exam because patient is confused and is not following instructions. Abdomen is soft with positive bowel sounds, and she has trace bilateral lower extremity edema. Telemetry was reviewed, and she had a brief five beat run of nonsustained VT yesterday at 9:00 p.m. It appears to have been asymptomatic. Brain CT scan I personally reviewed. It showed slightly enlarged meningioma about 2.61 cm diameter. No evidence of bleeding or acute stroke. Of course, ability to performed MRI is limited by the [employer] ICD. CURRENT MEDICATIONS: 1. Aspirin 81 mg daily. 2. Lipitor 10 mg daily. 3. Lasix 40 mg by mouth every other day. Of note, she had IV Lasix yesterday. 4. Lisinopril 5 mg daily. 5. Carvedilol 12.5 mg twice a day. 6. Protonix 40 mg daily. 7. Nitrofurantoin was completed yesterday. LABORATORY DATA: Labs today shows white count 11. Normal hematocrit and platelet count. Creatinine is 0.9. Normal potassium, transaminases. Troponin T was most recently 1.45 and then we stopped checking it. Chest x-ray yesterday showed chronic interstitial prominence, mild acute heart failure causing pulmonary edema, dual-chamber ICD. ASSESSMENT AND PLAN: Delightful 85-year-old woman with severe coronary artery disease, status post remote anterior infarct and cardiomyopathy with ejection fraction about 20% to 25% with inferior and inferolateral akinesis, stage 2 diastolic dysfunction, moderate artery enlargement. Her oxygenation has been good. She is on 2 liters nasal cannula. She is not tachypneic, but the biggest issue for us right now is her mental status and her code status. In terms of code status, her family says she is Do Not Resuscitate/Do Not Intubate, yet her defibrillator is on, and there is a contradiction present. They are not quite sure to turn off the defibrillator, but they will let us know. In terms of mental status changes, it is possible that it is related to severe heart attack. Also, it could be due to infection or stroke that has now shown up yet on the scan of her brain or if it is too early. Will continue to monitor her closely. Thank you very much for the opportunity to evaluate this patient. Cardiology will sign off at this time, but we are available for management of her device. If family wants to turn off the tachy therapy, Cardiology can do it, or we can page [facility] representative phlebotomy services. In terms of acute heart attack, she is not a candidate for invasive therapy due to her comorbid conditions, in particular dementia and advanced age and frail status.
--- NOTE | 2016-10-01 12:29 | PCM.PNMED ---
Subjective Date of Service Sep 29, 2016 Subjective Patient arrived from [facility]. She is Romanian speaking only. She is somewhat confused. Her son is by bedside. She denies chest pain bur states she has some shortness of breath. Vital signs stable. Tele SR 60's to 80's. Exam Vital Signs Vital Sign - Last Date Time Temp Pulse Resp B/P Pulse Ox O2 Delivery O2 Flow Rate FiO2 10/01/16 08:48 36.6 69 20 147/67 98 Nasal Cannula 2.00 Intake and Output 09/30/16 09/30/16 10/01/16 Cumulative From/Thru 15:00 23:00 07:00 09/28/16 23:09 - 10/01/16 06:19 Intake Total 717 ml 210 ml 1605 ml Output Total 750 ml 200 ml 3000 ml Balance -33 ml 10 ml -1395 ml Intake Oral 520 ml 0 ml 820 ml IV Total 197 ml 210 ml 785 ml Output Urine Total 750 ml 200 ml 3000 ml # Voids 4 5 # Bowel Movements 0 Exam General: No Acute Distress, mild confusion Head: Normocephalic, atraumatic. External ears normal. Mouth: Mouth Normal, Mucous Membranes Moist/[place] Neck: Neck supple with full range of motion, jugular venous distention present. Chest & Lungs: Clear to auscultation bilaterally with no crackles, wheezes, or rhonchi, poor effort. Cardiovascular: Regular Rate/Rhythm, Normal S1, Normal S2, No Murmurs/Rubs/ Gallops Abdomen: Non-tender, Non-distended, No masses, Normoactive bowel tones, Soft Musculoskeletal: overview of extremities is normal Extremities: No cyanosis or clubbing. 1+ pitting edema bilaterally Lab and Diagnostics Result Diagram: 10/01/16 0336 10/01/16 0336 X-Rays, CTs and MRIs CXR done at [facility] tonight: cardiomegaly, venous congestion 12-lead ECG SR with LBBB and borderline ST elevations in aVR, V1, V2 Cardiac Echo Impressions Echocardiogram Report Interpretation Summary The left ventricle is moderately dilated. Left ventricular systolic function is severely reduced. The ejection fraction is estimated to be 20-25%. There is moderate to severe global hypokinesis with akinesis along the inferior and inferolateral wall. Assessment of diastolic parameters suggests a pseudonormalization pattern, consistent with elevated filling pressures. The E/E' ratio is severely increased, suggesting possible increased filling pressures. The right ventricle is borderline dilated. There is a pacemaker lead in the right ventricle. Right ventricular systolic function is moderately reduced. The right ventricular systolic pressure is estimated at 67 mmHg assuming a right atrial pressure of 8 mm Hg. The left atrium is moderately dilated. The right atrium is mildly dilated. There is severe mitral regurgitation. There is mild to moderate aortic regurgitation. There is no other significant valvular heart disease. The aortic root is normal size. Reading Physician:PM Assessment & Plan Vane Clarke is a 85 year old woman with complex medical history including congestive heart failure, coronary artery disease, hyperlipidemia, hypertension , diabetes mellitus type 2 presenting with dyspnea at rest, non ST elevated miocardial infarction with elevated troponin, possible congestive heart failure exacerbation. 1. [id number] myocardial infarction, present on admission. Active -Elevated troponin of 1.22 here and 3.67 at [facility]. The values from different labs do not indicate a trend necessarily -Given her dementia, not a good candidate for interventional therapy -Cardiology consulted, continue aspirin, heparin drip x 48 hours total and start lipitor -ECHO revealed ejection fraction of 20-25% and moderate to severe global hypokinesis with akinesis along the inferior and inferolateral wall 2. Chronic or acute kidney failure, present on admission. Active -Elevated BUN and creatinine today -Continue to monitor 3. Cardiomyopathy, present on admission. Stable -Patient euvolemic now -Continue home carvedilol and lasix -Restart lisinopril tomorrow id renal function improves 4. Hypertension, chronic. Stable -Well controlled at present -Consider restarting lisinopril when kidney function back to normal baseline 5. Diabetes mellitus type 2, present on admission. Active -On lantus 16 units at home before bedtime -Continue low dose correction insulin -A1c 9.5% 6. Hyperlipidemia, chronic. Stable -Lipids are at goal even though patient is not on statin therapy -Start lipitor 10 mg daily by mouth 7. Dry eyes, present on admission. Stable - Refresh eye drops and ketotifen fumarate eye drops available to patient 8. Gastroesophageal reflex, present on admission. Stable -Pharmacy will replace Omeprazole 9. Seasonal Allergies, present on admission. Stable -Zyrtec 10mg, flonase, and ipratroprium as needed 10. POLST needs to be redone. The one in the chart from 2013 is full code and family has decided that DNR/DNI is more appropriate PRN medications for nausea, heartburn, constipation: zofram, maalox, senna, miralax Disposition: SNF pending clinical status Pain Evaluation: Adequate Pain Control VTE Prophylaxis: Sub-Q Heparin (Unfractionated) Resuscitation Status: DNR/DNI:Do Not Resuscitate/Intubate Attending Statement The patient was seen and examined together with Dr. Vieira on 09/29/2016 and I agree with the history, exam and plan as outlined in the note above. . Mary Kay Vieira DO Oct 01, 2016 12:29 Santi Hand MD Oct 06, 2016 07:42
[2016-10-01] MEDS: 0.9% Sodium Chloride 1,000 ML IV SCH (13:23)
[2016-10-01 14:01] LABS: APPEARANCE,URINE CLEAR (CLEAR,HAZY); COLOR,URINE YELLOW (YELLOW); OCCULT BLOOD,URINE NEGATIVE (NEGATIVE); PH,URINE 5.5 (5.0-8.0); UROBILINOGEN,URINE NORMAL (NORMAL)
[2016-10-01] MEDS: Insulin GLARgine 100 Unit/mL Syringe SUBQ SCH (21:17)
[2016-10-02] VITALS (8 sets, daily range): BP systolic 137–166; BP diastolic 65–73; PULSE 63–75; RESP 18–20; O2SAT 92–98
[2016-10-02] MEDS: 0.9% Sodium Chloride 1,000 ML IV SCH ×2 (00:22→14:05)
[2016-10-02 04:05] LABS: BASOPHILS % (AUTO) 0.2 % (0-3); EOSINOPHILS % (AUTO) 2.4 % (0-5); MONOCYTES % (AUTO) 8.7 % (4-12); Mean Corpuscular Hemoglobin 27.7 pg (27.0-35.0); Mean Corpuscular Volume 88.9 fL (81-100); NEUTROPHILS % (AUTO) 75.6 % (40-74); Platelet Count 257 bil/L (150-400)
--- NOTE | 2016-10-02 05:31 | NUR ---
Mentation Pt alert to self only this shift, alert and talkative in between brief naps. Pt incoherent and rambling, occasionally responds to questions and rarely follows commands. Slight L lip droop, but pupils appear equal and reactive to assessment. Unable to assess ultimate hoops trainer r/t pt not following commands, though pt utilizes bilateral upper and lower extremities. Pt able to ambulate to [facility] with 2PA, weak on exertion and difficult to transfer d/t inability to direct. Incontinent to brief x2. Pt intermittently sleeping and awake throughout shift, little real sleep obtained. Combative and agitated with aide x1. VSS. Tele SR 60s IVCD with occasional pacing. Pt drank small sips of chocolate shake throughout shift.
[2016-10-02] MEDS: Fluticasone 0.05% 15 Spray/2 Gm 16 Gm Nasal Spray NASAL SCH (08:16)
[2016-10-02] MEDS: Sodium Chloride LOK Flush 10 mL Syringe IVFLUSH SCH ×2 (08:16→16:30)
[2016-10-02] MEDS: Pantoprazole 40 mg ER24 Tablet PO SCH (08:16)
[2016-10-02] MEDS: LacriLube S.O.P. 3.5 Gm Ophthalmic Ointment BOTH_EYES SCH ×3 (08:16→20:30)
[2016-10-02] MEDS: Naphazoline/Pheniramine 5 mL Ophthalmic Solution BOTH_EYES SCH ×2 (08:16→20:30)
[2016-10-02] MEDS: Insulin LISPRO 300 Unit/3 mL Inj SUBQ SCH ×4 (08:20→21:33)
--- NOTE | 2016-10-02 10:29 | NUR ---
Social Work: Readiness for Discharge D: Pt discussed in am rounds. Pt continues to be confused, which is not baseline for her. MD is continuing to explore the source of pt's new AMS. Pt is a LTC resident at [facility] and has been accepted back when medically stable. Pt uses a walker at baseline. PPW on chart. t/c to [facility] to provide update. No answer. Left message requesting return phone call to discuss pt's care and transfer back when medically stable. t/c to pt's daughter to verify pt's discharge plan and transportation arrangements back to [facility]. No answer. Left message requesting return phone call. A: Pt who is a LTC resident at [facility]. P: Anticipate pt to return to [facility] when medically stable; CLINICAL TRIALS ASSISTANT to continue to attempt contact with pt's daughter to verify dcp. PORTILLO Lucero Addendum: 10/02/16 at 1152 by MANDA ABREU SS CLINICAL TRIALS ASSISTANT spoke with pt's daughter, Jazzy, who states that they will transport the pt back to [facility] when she is appropriate. She has concerns about the pt's altered mental status. Pt has experienced similar hospital delirium in past hospitalizations. CLINICAL TRIALS ASSISTANT informed her that if no source of delirium is found, pt's insurance would likely not allow her to remain in the hospital and may need to return to [facility]. Pt's daughter states she understands but is hopeful that a source will be located. PORTILLO spoke with bedside RN who states that a CT scan was done along with repeat labs.
--- NOTE | 2016-10-02 11:52 | NUR ---
[facility] Signed
--- NOTE | 2016-10-02 17:42 | NUR ---
Insulin Pt not taking in much PO today. Administered 2 units at breakfast time for a Blood Glucose of 265 and drank half her Ensure. With held at lunch time due to not taking in PO. Blood Glucose at dinner was 201. Will administer insulin if the pt eats.
--- NOTE | 2016-10-02 18:01 | DRSVH ---
PROCEDURE: X-RAY CHEST ONE VIEW, PORTABLE ([id number]) INDICATIONS: cough TECHNIQUE: One view of the chest was acquired. COMPARISON: [facility], CT, CT BRAIN WO CON, 10/01/2016, 10:47. [facility], CR, XR CHEST 1VW (PORTABLE), 09/30/2016, 12:26. FINDINGS: Surgical changes and devices: Cardiac pacemaking device with dual chamber leads stable over time. Lungs and pleura: No pleural effusions or pneumothorax. Lungs are abnormal with a patchy pneumonia pattern bilaterally, involving the upper and lower lungs but not changed appreciably from 09/30/16 con sidering mildly reduced inspiratory volume. Mediastinum: Mediastinal contours appear normal. Heart size is globally enlarged to a moderate degr ee, chronically. Bones and chest wall: No suspicious bony lesions. Overlying soft tissues appear unremarkable. IMPRESSION: Chronic cardiomegaly, pacemaking device and dual chamber leads appear normal. Patchy bi lateral pneumonia pattern, versus chronic CHF pattern with a heterogeneous distribution of both inter stitial prominence and edema. Dictated by: Joseph Skelton M.D. on 10/02/2016 at 17:58 Approved by: Joseph Skelton M.D. on 10/02/2016 at 17:59
[2016-10-02] MEDS: Insulin GLARgine 100 Unit/mL Syringe SUBQ SCH (21:34)
[2016-10-03] VITALS (9 sets, daily range): BP systolic 151–174; BP diastolic 71–88; PULSE 68–84; RESP 18–36; O2SAT 95–97
[2016-10-03] MEDS: Sodium Chloride LOK Flush 10 mL Syringe IVFLUSH SCH ×3 (00:30→15:53)
--- NOTE | 2016-10-03 02:14 | NUR ---
Mentation Pt heavily asleep during the beginning of the shift. Able to be awakened but quickly falls asleep afterwords. HS medications not administered other than the insulin. BG level 202 at 2200. Pt exhibiting use of accessory muscles to breath on expiratory. Sp02 saturations at 92% on 2.5L NC. Pt restless at 0200. Brief wet, changed and repositioned. Family requesting sedatives but advised that the restlessness may be d/t being incontinent and uncomfortable. Continue to monitor.
[2016-10-03 03:28] LABS: BASOPHILS % (AUTO) 0.2 % (0-3); MONOCYTES % (AUTO) 6.5 % (4-12); Mean Corpuscular Hemoglobin 28.2 pg (27.0-35.0); Mean Corpuscular Volume 90.8 fL (81-100); NEUTROPHILS % (AUTO) 78.9 % (40-74); Platelet Count 256 bil/L (150-400)
[2016-10-03 04:20] LABS: Magnesium 1.7 mg/dL (1.6-2.6)
[2016-10-03] MEDS: Pantoprazole 40 mg ER24 Tablet PO SCH (06:28)
[2016-10-03] MEDS ORDERED: Dextrose 5% 1,000 ML IV ONE (07:50)
[2016-10-03] MEDS: Insulin LISPRO 300 Unit/3 mL Inj SUBQ SCH ×4 (08:00→21:32)
[2016-10-03] MEDS: Fluticasone 0.05% 15 Spray/2 Gm 16 Gm Nasal Spray NASAL SCH (08:30)
[2016-10-03] MEDS: Naphazoline/Pheniramine 5 mL Ophthalmic Solution BOTH_EYES SCH ×2 (08:30→20:30)
[2016-10-03] MEDS: LacriLube S.O.P. 3.5 Gm Ophthalmic Ointment BOTH_EYES SCH ×3 (08:30→20:30)
--- NOTE | 2016-10-03 14:57 | NUR ---
Family Wishes, Multidisciplinary Communication, Mentation 0745 - Checked on the patient and found her sleeping. Spoke with the daughter about the plan for the day and offered to bring in an managing principal for the patient during her assessment as she is Irish speaking only. The daughter (who spoke excellent Sierra Leonean) kindly declined saying, "Oh, no. I can translate for her. That is why I am here." 0945 - Spoke with Dr. Zepeda during morning multidisciplinary rounds about her. Informed him that she hasn't had a bowel movement since the and that the family was somewhat confused about the plan of care and was requesting clarification. He said he would speak with the family. Also, notified him that because she was confused and had been so sleepy she wasn't tolerating oral intake such as food and pills. He said it was alright to hold her PO medications for now. Clarified that he wanted D5W given which he said yes as it would help correct her hypernatremia. 1010 - Spoke with her daughter and son and found out tonsid had been the first time she had slept since arriving to the hospital. She was still sleeping soundly. The family agreed to decline her PO medications due to choking risk and also declined her eye drops saying she hadn't been having issues with her eyes for some time. They requested that she be allowed to sleep as much as possible. Told them this nurse would let her sleep a little while longer and come then back in an hour to start the D5W IV drip as well as complete an assessment and take her vitals to which they agreed. 1115 - Came back and assessed her with the family translating. Neurological: She woke up and became alert after talking to her. She knew her age, name, and state she was in. Did not know that she was in a hospital. She was obviously confused repeating things over and over again and it took several attempts of her children asking her the same questions repeatedly before she would given a correct response. For example, they would ask her what her birthday was, but she kept trying to tell them her age instead. She adorably kept saying in broken [place] Leonean and Irish, "I love you so much! I love you so much!" while blowing kisses and stretching out her arms to give the staff members and her children hugs and kisses. Care continues.
--- NOTE | 2016-10-03 16:02 | PCM.PNMED ---
Subjective Date of Service Oct 02, 2016 Subjective ROS limited due to patient's altered mental status but seems to deny any discomfort Exam Vital Signs Vital Sign - Last Date Time Temp Pulse Resp B/P Pulse Ox O2 Delivery O2 Flow Rate FiO2 10/03/16 11:13 36.9 84 18 174/75 95 Nasal Cannula 2.50 Intake and Output 10/02/16 10/02/16 10/03/16 Cumulative From/Thru 15:00 23:00 07:00 09/28/16 23:09 - 10/03/16 06:37 Intake Total 50 ml 809 ml 120 ml 4076 ml Output Total 3450 ml Balance 50 ml 809 ml 120 ml 626 ml Intake Oral 50 ml 100 ml 1070 ml IV Total 809 ml 20 ml 3006 ml Output Urine Total 3450 ml # Voids 2 3 11 # Bowel Movements 0 0 Exam Seems confused and disoriented. Does not follow all commands. General: Alert, Cooperative, No Acute Distress Head: Normal Eyes: Scleral Anicteric Nose: Mucous Membr Moist/[place] Mouth: Mucous Membr Moist/[place] Neck: Supple Chest & Lungs: Chest Wall Normal, Clear to auscultation & percussion Cardiovascular: Regular Rate/Rhythm Abdomen: Non-tender, Non-distended, Normoactive bowel tones, Soft Extremities: No cyanosis/clubbing/edma bilat Neurological: Other (Seems to have some mild left sided neglect. Full neuro exam limited due to patient's confusion.) IVs and Medications Medications Reviewed: Medications were reviewed in detail Lab and Diagnostics Result Diagram: 10/03/1631710/03/16317 X-Rays, CTs and MRIs CXR done at [facility] tonight: cardiomegaly, venous congestion 12-lead ECG SR with LBBB and borderline ST elevations in aVR, V1, V2 Cardiac Echo Impressions Echocardiogram Report Interpretation Summary The left ventricle is moderately dilated. Left ventricular systolic function is severely reduced. The ejection fraction is estimated to be 20-25%. There is moderate to severe global hypokinesis with akinesis along the inferior and inferolateral wall. Assessment of diastolic parameters suggests a pseudonormalization pattern, consistent with elevated filling pressures. The E/E' ratio is severely increased, suggesting possible increased filling pressures. The right ventricle is borderline dilated. There is a pacemaker lead in the right ventricle. Right ventricular systolic function is moderately reduced. The right ventricular systolic pressure is estimated at 67 mmHg assuming a right atrial pressure of 8 mm Hg. The left atrium is moderately dilated. The right atrium is mildly dilated. There is severe mitral regurgitation. There is mild to moderate aortic regurgitation. There is no other significant valvular heart disease. The aortic root is normal size. Reading Physician:PM Assessment & Plan 85 year old woman with complex medical history including congestive heart failure, coronary artery disease, hyperlipidemia, hypertension, diabetes mellitus type 2 presenting with dyspnea at rest, non ST elevated miocardial infarction with elevated troponin, possible congestive heart failure exacerbation. # Acute confusion and altered mental statu. Not present on admission. -Unclear exact etiology but possible acute delirium vs acute encephalopathy vs acute CVA -Family notes that patient has had similar issue in prior hospitalization that was due to underlying infection -Rule out underlying infection. UA negative. Check viral respiratory PCR. Check CXR. Repeat labs in am # Acute [id number] myocardial infarction, present on admission. Active -Cardiology consulted, continue aspirin,and Lipitor -Given her dementia, not a good candidate for interventional therapy -ECHO revealed ejection fraction of 20-25% and moderate to severe global hypokinesis with akinesis along the inferior and inferolateral wall -Discussed with patient's son ([email or web address]) regarding her AICD and he plans to discuss with rest of family to decide if turn AICD off or not given her code status is DNR/DNI # Acute kidney injury, present on admission. Resolved -Continue to monitor # Cardiomyopathy, present on admission. Stable -Patient euvolemic now -Continue current meds # Hypertension, chronic. Stable -Well controlled at present -Continue current meds # Diabetes mellitus type 2, present on admission. Active -On Lantus 16 units at home before bedtime -Continue low dose correction insulin -A1c 9.5% # Hyperlipidemia, chronic. Stable -Lipids are at goal even though patient is not on statin therapy -Lipitor 10 mg daily # Dry eyes, present on admission. Stable - Refresh eye drops and ketotifen fumarate eye drops available to patient # Gastroesophageal reflex, present on admission. Stable -Pharmacy will replace Omeprazole Dispo: 2-3 days VTE Prophylaxis: Sub-Q Heparin (Unfractionated) Resuscitation Status: DNR/DNI:Do Not Resuscitate/Intubate DuaneSg Oct 03, 2016 16:02
--- NOTE | 2016-10-03 16:07 | PCM.PNMED ---
Subjective Date of Service Oct 03, 2016 Subjective ROS limited but seems to deny any discomfort Reportedly was able to sleep throughout the night after several nights of being awake and agitated. Exam Vital Signs Vital Sign - Last Date Time Temp Pulse Resp B/P Pulse Ox O2 Delivery O2 Flow Rate FiO2 10/03/16 11:13 36.9 84 18 174/75 95 Nasal Cannula 2.50 Intake and Output 10/02/16 10/02/16 10/03/16 Cumulative From/Thru 15:00 23:00 07:00 09/28/16 23:09 - 10/03/16 06:37 Intake Total 50 ml 809 ml 120 ml 4076 ml Output Total 3450 ml Balance 50 ml 809 ml 120 ml 626 ml Intake Oral 50 ml 100 ml 1070 ml IV Total 809 ml 20 ml 3006 ml Output Urine Total 3450 ml # Voids 2 3 11 # Bowel Movements 0 0 Exam Seems much more alert and coherent today compared to prior days. Recognizes her son and daughter today (which she didn't past couple of days). Continues to remain disoriented and confused however. General: Alert, Cooperative, No Acute Distress Head: Normal Eyes: Scleral Anicteric Nose: Mucous Membr Moist/[place] Mouth: Mucous Membr Moist/[place] Neck: Supple Chest & Lungs: Chest Wall Normal, Clear to auscultation bilat Cardiovascular: Regular Rate/Rhythm Abdomen: Non-tender, Non-distended, Normoactive bowel tones, Soft Extremities: No cyanosis/clubbing/edma bilat Neurological: Other (left sided neglect seems resolved today. Full neuro exam limited due to patient's confusion.) IVs and Medications Medications Reviewed: Medications were reviewed in detail Lab and Diagnostics Result Diagram: 10/03/1631710/03/16317 X-Rays, CTs and MRIs CXR done at [facility] tonight: cardiomegaly, venous congestion 12-lead ECG SR with LBBB and borderline ST elevations in aVR, V1, V2 Cardiac Echo Impressions Echocardiogram Report Interpretation Summary The left ventricle is moderately dilated. Left ventricular systolic function is severely reduced. The ejection fraction is estimated to be 20-25%. There is moderate to severe global hypokinesis with akinesis along the inferior and inferolateral wall. Assessment of diastolic parameters suggests a pseudonormalization pattern, consistent with elevated filling pressures. The E/E' ratio is severely increased, suggesting possible increased filling pressures. The right ventricle is borderline dilated. There is a pacemaker lead in the right ventricle. Right ventricular systolic function is moderately reduced. The right ventricular systolic pressure is estimated at 67 mmHg assuming a right atrial pressure of 8 mm Hg. The left atrium is moderately dilated. The right atrium is mildly dilated. There is severe mitral regurgitation. There is mild to moderate aortic regurgitation. There is no other significant valvular heart disease. The aortic root is normal size. Reading Physician:PM Assessment & Plan 85 year old woman with complex medical history including congestive heart failure, coronary artery disease, hyperlipidemia, hypertension, diabetes mellitus type 2 presenting with dyspnea at rest, non ST elevated miocardial infarction with elevated troponin, possible congestive heart failure exacerbation. # Acute confusion and altered mental statu. Not present on admission. Seems to be improving -Unclear exact etiology but possible acute delirium vs acute encephalopathy vs acute TIA -Family notes that patient has had similar issue in prior hospitalization that was due to underlying infection -No sign of active infection identified at this time. -Continue with supportive care # Acute hypernatremia. Not present on admission -Start D5W and followup repeat labs in am # Acute Jbg-[id number] myocardial infarction, present on admission. Active -Cardiology consulted, continue aspirin,and Lipitor -Given her dementia, not a good candidate for interventional therapy -ECHO revealed ejection fraction of 20-25% and moderate to severe global hypokinesis with akinesis along the inferior and inferolateral wall -Discussed with patient's son (DPOA) regarding her AICD and he plans to discuss with rest of family to decide if turn AICD off or not given her code status is DNR/DNI # Acute kidney injury, present on admission. Resolved -Continue to monitor # Cardiomyopathy, present on admission. Stable -Patient euvolemic now -Continue current meds # Hypertension, chronic. Stable -Well controlled at present -Continue current meds # Diabetes mellitus type 2, present on admission. Active -On Lantus 16 units at home before bedtime -Continue low dose correction insulin -A1c 9.5% # Hyperlipidemia, chronic. Stable -Lipids are at goal even though patient is not on statin therapy -Lipitor 10 mg daily # Dry eyes, present on admission. Stable - Refresh eye drops and ketotifen fumarate eye drops available to patient # Gastroesophageal reflex, present on admission. Stable -Pharmacy will replace Omeprazole Dispo: 2-3 days pending improved mental status VTE Prophylaxis: Sub-Q Heparin (Unfractionated) Resuscitation Status: DNR/DNI:Do Not Resuscitate/Intubate Sg Zepeda Oct 03, 2016 16:07
--- NOTE | 2016-10-03 16:09 | PCM.ADCARE ---
Advance Care Planning Note Purpose of Encounter: Followup and goals of care Parties in Attendance: patient, her son (DPKIRSTY), daughter. (patient's 2 children out of 8) Decisional Capacity: patient without capacity but son (ISHAN) making decisions in consultation with other siblings. Subjective: ROS limited but seems to deny any discomfort Objective: Seems much more alert and coherent today compared to prior days. Recognizes her son and daughter today (which she didn't past couple of days). Continues to remain disoriented and confused however. General: Alert, Cooperative, No Acute Distress Head: Normal Eyes: Scleral Anicteric Nose: Mucous Membr Moist/[place] Mouth: Mucous Membr Moist/[place] Neck: Supple Chest & Lungs: Chest Wall Normal, Clear to auscultation bilat Cardiovascular: Regular Rate/Rhythm Abdomen: Non-tender, Non-distended, Normoactive bowel tones, Soft Extremities: No cyanosis/clubbing/edma bilat Neurological: Other (left sided neglect seems resolved today. Full neuro exam limited due to patient's confusion.) Goals of Care Determinations: Patient's son (ISHAN) agrees with DNR/DNI. He wants to discuss with other siblings regarding possibility of turning off the AICD. He wishes to continue with current medical care and will consider further comfort care or hospice if needed depending patient's clinical course. He is hopeful that patient's mental status will continue to improve and that she would return to her previous living situation. Plan: Continue with current medical care as noted in my progress note from earlier today CODE STATUS: DNR/DNI Time Spent Adv.Care Plannin min Sg Zepeda Oct 03, 2016 16:09
[2016-10-03] MEDS: Insulin GLARgine 100 Unit/mL Syringe SUBQ SCH (21:32)
[2016-10-04] VITALS (11 sets, daily range): BP systolic 148–169; BP diastolic 65–89; PULSE 70–93; RESP 26–36; O2SAT 90–99
[2016-10-04] MEDS: Sodium Chloride LOK Flush 10 mL Syringe IVFLUSH SCH ×3 (00:22→16:41)
[2016-10-04] MEDS: Pantoprazole 40 mg ER24 Tablet PO SCH (06:30)
--- NOTE | 2016-10-04 06:39 | NUR ---
Mentation/PO intake pt very confused all shift, unable to follow commands, incontinent to to urine and stool. All PO meds held due to pt unable to follow commands or swallow safely. Morphine IV given x1 for hand pain, effective.
[2016-10-04] MEDS: Insulin LISPRO 300 Unit/3 mL Inj SUBQ SCH ×4 (08:18→22:45)
[2016-10-04] MEDS: LacriLube S.O.P. 3.5 Gm Ophthalmic Ointment BOTH_EYES SCH ×3 (08:19→20:30)
[2016-10-04] MEDS: Naphazoline/Pheniramine 5 mL Ophthalmic Solution BOTH_EYES SCH ×3 (08:19→20:30)
[2016-10-04] MEDS ORDERED: Labetalol 5 mg/mL 4 mL Inj IVPUSH ONE (10:30)
--- NOTE | 2016-10-04 11:46 | NUR ---
Social Work Note - Continued Discharge Planning: D/A: The Pt is an 85 y/o female that is now on day 6 of admission for non stemi. PT discussed in rounds, siri eval to be completed. LO met with one of the Pt's daughters Jazzy to discuss discharge planning. Daughter reports that the plan is for the Pt to return back to [facility] after discharge. Daughter reports that her brother Gordon [phone] is her DPOA and to contact him or her sister Evelyn [phone] if family is not in the room. Daughter denies any other needs at this time, SW will continue to follow. P: The Pt is not medically stable for discharge, will likely discharge back to [facility] when ready with family providing POV transportation. Daughter denies any other needs at this time, SW will continue to follow. PORTILLO [employer] Sales Consultant Addendum: 10/04/16 at 1356 by SNEHAL KAHN LO has reviewed research program intern note. PORTILLO Velazquez
[2016-10-04] MEDS ORDERED: Glucose 40% Oral Gel 15 Gm Tube PO PRN (12:00)
--- NOTE | 2016-10-04 12:01 | PCM.PNMED ---
Subjective Date of Service Oct 04, 2016 Subjective Patient continues to be agitated in her sleep. When she is awake, she is very confused, unable to follow commands, incontinent to to urine and stool. Unable to take oral medications. Exam Vital Signs Vital Sign - Last Date Time Temp Pulse Resp B/P Pulse Ox O2 Delivery O2 Flow Rate FiO2 10/04/16 11:18 148/71 10/04/16 09:18 88 10/04/16 08:00 Supplement Oxygen 10/04/16 08:00 36.8 30 95 2.50 Intake and Output 10/03/16 10/03/16 10/04/16 Cumulative From/Thru 15:00 23:00 07:00 09/28/16 23:09 - 10/04/16 06:06 Intake Total 244 ml 569 ml 4889 ml Output Total 3450 ml Balance 244 ml 569 ml 1439 ml Intake Oral 0 ml 1070 ml IV Total 244 ml 569 ml 3819 ml Output Urine Total 3450 ml # Voids 2 13 # Bowel Movements 0 Exam General: Elderly woman laying in bed asleep but seems to be dreaming, agitated in her sleep Chest & Lungs: Expiratory wheezing anteriorly bilaterally, no rales or rhonchi Cardiovascular: Regular Rate/Rhythm, +S1/S2 Abdomen: Non-tender, Non-distended, Normoactive bowel tones, Soft Extremities: No cyanosis/clubbing/edema bilaterally HEENT: Normocephalic/atraumatic, PERRLA, thyroid midline Psychiatric: Mood and affect were very agitated, patient still confused and delirious IVs and Medications Medications Reviewed: Medications were reviewed in detail Lab and Diagnostics Result Diagram: 10/03/16 0318 10/04/16 0430 [facility]galy, venous congestion 12-lead ECG SR with LBBB and borderline ST elevations in aVR, V1, V2 Cardiac Echo Impressions Echocardiogram Report Interpretation Summary The left ventricle is moderately dilated. Left ventricular systolic function is severely reduced. The ejection fraction is estimated to be 20-25%. There is moderate to severe global hypokinesis with akinesis along the inferior and inferolateral wall. Assessment of diastolic parameters suggests a pseudonormalization pattern, consistent with elevated filling pressures. The E/E' ratio is severely increased, suggesting possible increased filling pressures. The right ventricle is borderline dilated. There is a pacemaker lead in the right ventricle. Right ventricular systolic function is moderately reduced. The right ventricular systolic pressure is estimated at 67 mmHg assuming a right atrial pressure of 8 mm Hg. The left atrium is moderately dilated. The right atrium is mildly dilated. There is severe mitral regurgitation. There is mild to moderate aortic regurgitation. There is no other significant valvular heart disease. The aortic root is normal size. Reading Physician:PM Assessment & Plan 85 year old woman with complex medical history including congestive heart failure, coronary artery disease, hyperlipidemia, hypertension, diabetes mellitus type 2 presenting with dyspnea at rest, non ST elevated miocardial infarction with elevated troponin, possible congestive heart failure exacerbation. Acute confusion and altered mental status. Not present on admission. Seems to be improving -Unclear exact etiology but possible acute hospital psychosis, acute delirium vs acute encephalopathy vs acute TIA -Family notes that patient has had similar issue in prior hospitalization that was due to underlying infection -No sign of active infection identified at this time -Physical therapy to assist up to chair for meals -Continue with supportive care Acute hypernatremia. Not present on admission -Start D5W and followup repeat labs in am Acute Bcm-QS-[id number] myocardial infarction, present on admission. Active -Cardiology consulted, continue aspirin,and Lipitor -Given her dementia, not a good candidate for interventional therapy -ECHO revealed ejection fraction of 20-25% and moderate to severe global hypokinesis with akinesis along the inferior and inferolateral wall -Discussed with patient's son (ISHAN) regarding her AICD and he plans to discuss with rest of family to decide if turn AICD off or not given her deteriorating condition Acute kidney injury, present on admission. Resolved -Continue to monitor Cardiomyopathy, present on admission. Stable -Patient euvolemic now -Continue current meds Hypertension, chronic. Stable -Not well controlled at present due to patient not being able to take oral meds -Labetalol 10 mg IV once -Continue to monitor blood pressure Diabetes mellitus type 2, present on admission. Active (uncontrolled) -On Lantus 16 units at home before bedtime, on 8 units here, increased to 12 today -Changed low dose correction insulin to medium -A1c 9.5% Hyperlipidemia, chronic. Stable -Lipids are at goal even though patient is not on statin therapy -Lipitor 10 mg daily as recommended by cardiology Dry eyes, present on admission. Stable - Refresh eye drops and ketotifen fumarate eye drops available to patient Gastroesophageal reflex, present on admission. Stable -Pharmacy will replace Omeprazole Dispo: Most likely to SNF in 2-3 days pending improved mental status VTE Prophylaxis: Sub-Q Heparin (Unfractionated) Resuscitation Status: DNR/DNI:Do Not Resuscitate/Intubate Attending Statement The patient was seen and examined together with Dr. Vieira on 10/04/16 and I have added additional information to the note above. Mary Kay Vieira DO Oct 04, 2016 12:01 Radha Turcios DO Oct 04, 2016 14:10
[2016-10-04] MEDS: Fluticasone 0.05% 15 Spray/2 Gm 16 Gm Nasal Spray NASAL SCH (12:21)
--- NOTE | 2016-10-04 14:04 | NUR ---
Evaluation completed. Please go to "Notes" then click on "Assessments and Notes" (bottom left corner of screen). Then select appropriate discipline tab on top of screen.
--- NOTE | 2016-10-04 15:23 | NUR ---
Evaluation completed. Please go to "Notes" then click on "Assessments and Notes" (bottom left corner of screen). Then select appropriate discipline tab on top of screen.
[2016-10-04] MEDS ORDERED: Insulin GLARgine 100 Unit/mL Syringe SUBQ SCH (21:00)
--- NOTE | 2016-10-04 22:02 | NUR ---
Mentation Pt in and out of sleep. Arousable to noise but unable to answer questions. Family concerned over the plan of care. Especially since pt is not taking anything PO. Provider spoken with. Recommended giving pt 500mL bag of NS fluids at 50mL/hr over night. Provider stated that he would like for her to be given the 1mg of IV Morphine and no other IV analgesic. Continue to monitor. Family provided reassurance and kept updated.
[2016-10-04] MEDS: Insulin GLARgine 100 Unit/mL Syringe SUBQ SCH ×2 (22:45→23:28)
[2016-10-04] MEDS: 0.9% Sodium Chloride 500 ML IV SCH (23:29)
[2016-10-05] VITALS (8 sets, daily range): BP systolic 119–165; BP diastolic 65–94; PULSE 63–92; RESP 15–26; O2SAT 91–96
[2016-10-05] MEDS: Haloperidol 5 mg/mL Inj IM PRN ×3 (00:05→07:45)
[2016-10-05] MEDS: Sodium Chloride LOK Flush 10 mL Syringe IVFLUSH SCH ×3 (00:30→15:42)
[2016-10-05 05:04] LABS: Mean Corpuscular Hemoglobin 27.6 pg (27.0-35.0); Mean Corpuscular Volume 88.5 fL (81-100)
[2016-10-05] MEDS: Pantoprazole 40 mg ER24 Tablet PO SCH (06:30)
[2016-10-05] MEDS: Naphazoline/Pheniramine 5 mL Ophthalmic Solution BOTH_EYES SCH ×3 (07:30→19:32)
[2016-10-05] MEDS: Insulin LISPRO 300 Unit/3 mL Inj SUBQ SCH ×4 (07:31→21:19)
[2016-10-05] MEDS: LacriLube S.O.P. 3.5 Gm Ophthalmic Ointment BOTH_EYES SCH ×3 (07:32→19:32)
[2016-10-05] MEDS: Fluticasone 0.05% 15 Spray/2 Gm 16 Gm Nasal Spray NASAL SCH (07:32)
[2016-10-05] MEDS ORDERED: 0.9% Sodium Chloride 1,000 ML IV ONE (08:20)
[2016-10-05] MEDS: 0.9% Sodium Chloride 500 ML IV SCH ×2 (08:44→19:15)
--- NOTE | 2016-10-05 09:25 | DRSVH ---
PROCEDURE: X-RAY CHEST ONE VIEW, PORTABLE ([id number]) INDICATIONS: laboured breathing, increased WBC TECHNIQUE: One view of the chest was acquired. COMPARISON: [facility], CR, XR CHEST 1VW (PORTABLE), 10/02/2016, 17:26. [facility], CR, XR CHEST 1VW (PORTABLE), 09/30/2016, 12:26. FINDINGS: Surgical changes and devices: Cardiac defibrillator is unchanged. Lungs and pleura: Lung volumes are low. There are diffuse interstitial opacities, bibasilar consolida tion, and likely bilateral pleural effusions. These findings have increased in extent when compared w ith the study dated 10/02/16. Mediastinum: Mediastinal contours appear normal. Heart size is normal. Bones and chest wall: No suspicious bony lesions. Overlying soft tissues appear unremarkable. IMPRESSION: 1. Decreased lung volumes and findings suspicious for increased fluid overload. 2. Increased basilar radiopacity suggesting increased consolidation or atelectasis. Dictated by: Sallie Burns M.D. on 10/05/2016 at 9:21 Approved by: Sallie Burns M.D. on 10/05/2016 at 9:23
[2016-10-05 11:30] LABS: Mean Corpuscular Hemoglobin 27.6 pg (27.0-35.0); Mean Corpuscular Volume 88.7 fL (81-100)
[2016-10-05 12:12] LABS: APPEARANCE,URINE HAZY (CLEAR,HAZY); COLOR,URINE DARK YELLOW (YELLOW); PH,URINE 5.5 (5.0-8.0)
[2016-10-05 12:13] LABS: OCCULT BLOOD,URINE NEGATIVE (NEGATIVE); UROBILINOGEN,URINE 2 mg/dL (NORMAL)
--- NOTE | 2016-10-05 13:48 | PCM.PNMED ---
Subjective Date of Service Oct 05, 2016 Subjective Patient has been in and out of sleep last night. She is unable to answer questions, she continues to take nothing by mouth. She was given 500 mls of normal saline by the production supervisor off shift, as well as 1 mg IV morphine and 1 mg IV Haldol for agitation. Patient was able to rest and sleep after that. Exam Vital Signs Vital Sign - Last Date Time Temp Pulse Resp B/P Pulse Ox O2 Delivery O2 Flow Rate FiO2 10/05/16 13:25 36.8 63 15 119/65 94 Nasal Cannula 2.50 Intake and Output 10/04/16 10/04/16 10/05/16 Cumulative From/Thru 15:00 23:00 07:00 09/28/16 23:09 - 10/05/16 06:13 Intake Total 0 ml 187 ml 285 ml 5361 ml Output Total 3 ml 3453 ml Balance 0 ml 187 ml 282 ml 1908 ml Intake Oral 0 ml 0 ml 0 ml 1070 ml IV Total 187 ml 285 ml 4291 ml Output Urine Total 3450 ml Urine/Stool Mix 3 ml 3 ml # Voids 3 4 20 # Bowel Movements 2 4 6 Exam General: Elderly woman laying in bed asleep Chest & Lungs: Expiratory wheezing anteriorly bilaterally, labored breathing Cardiovascular: Regular Rate/Rhythm, +S1/S2 Abdomen: Non-tender, Non-distended, Normoactive bowel tones, Soft Extremities: No cyanosis/clubbing/edema bilaterally IVs and Medications IV Fluids NS IV @ 250 cc/hr, 1 L Medications Reviewed: Medications were reviewed in detail Lab and Diagnostics Result Diagram: 10/05/16 1115 10/05/16 1115 X-Rays, CTs and MRIs X-RAY CHEST ONE VIEW IMPRESSION: 1. Decreased lung volumes and findings suspicious for increased fluid overload. 2. Increased basilar radiopacity suggesting increased consolidation or atelectasis. Dictated and approved by: Sallie Burns M.D. on 10/05/2016 at 9:21 CXR done at [facility]: cardiomegaly, venous congestion 12-lead ECG SR with LBBB and borderline ST elevations in aVR, V1, V2 Cardiac Echo Impressions Echocardiogram Report Interpretation Summary The left ventricle is moderately dilated. Left ventricular systolic function is severely reduced. The ejection fraction is estimated to be 20-25%. There is moderate to severe global hypokinesis with akinesis along the inferior and inferolateral wall. Assessment of diastolic parameters suggests a pseudonormalization pattern, consistent with elevated filling pressures. The E/E' ratio is severely increased, suggesting possible increased filling pressures. The right ventricle is borderline dilated. There is a pacemaker lead in the right ventricle. Right ventricular systolic function is moderately reduced. The right ventricular systolic pressure is estimated at 67 mmHg assuming a right atrial pressure of 8 mm Hg. The left atrium is moderately dilated. The right atrium is mildly dilated. There is severe mitral regurgitation. There is mild to moderate aortic regurgitation. There is no other significant valvular heart disease. The aortic root is normal size. Reading Physician:PM Assessment & Plan 85 year old woman with complex medical history including congestive heart failure, coronary artery disease, hyperlipidemia, hypertension, diabetes mellitus type 2 presenting with dyspnea at rest, non ST elevated miocardial infarction with elevated troponin, possible congestive heart failure exacerbation. Acute confusion and altered mental status. Not present on admission. Ongoing -Unclear exact etiology but possible acute hospital psychosis, acute delirium vs acute encephalopathy vs acute TIA/CVA -Family notes that patient has had similar issue in prior hospitalization that was due to underlying infection -Increased white blood count today secondary to infectious process versus end of life -Physical therapy recommended to return patient to [facility] -Continue with supportive care; IV haldol and morphine as needed Acute hypernatremia. Not present on admission -NS IV at 250 cc/hr, 1 L -Repeat labs in am Leukocytosis, not present on admission. Active -Most likely secondary to infectious process versus end of life -Repeat chest x-ray revealed increased fluid overload (he should not looks dry, however) and increased bibasilar consolidations versus atelectasis -Repeat UA pending -Repeat labs pending Acute Hlw-TE-hliztrtru myocardial infarction, present on admission. Active -Cardiology consulted, continue aspirin,and Lipitor -Given her dementia, not a good candidate for interventional therapy -ECHO revealed ejection fraction of 20-25% and moderate to severe global hypokinesis with akinesis along the inferior and inferolateral wall -Discussed with patient's son (DPOA) regarding her AICD and he plans to discuss with rest of family to decide if turn AICD off or not given her deteriorating condition Acute kidney injury, present on admission. Active -Increase in creatinine and BUN this morning is likely due to dehydration -Continue IV fluids, discontinue Lasix -Continue to monitor Cardiomyopathy, present on admission. Stable -Patient euvolemic now -Continue current meds Hypertension, chronic. Stable -Not well controlled at present due to patient not being able to take oral meds -Labetalol 10 mg IV once -Continue to monitor blood pressure Diabetes mellitus type 2, present on admission. Active (uncontrolled) -On Lantus 16 units at home before bedtime, on 8 units here, increased to 12 today -Changed low dose correction insulin to medium -A1c 9.5% Hyperlipidemia, chronic. Stable -Lipids are at goal even though patient is not on statin therapy -Lipitor 10 mg daily as recommended by cardiology Dry eyes, present on admission. Stable - Refresh eye drops and ketotifen fumarate eye drops available to patient Gastroesophageal reflex, present on admission. Stable -Pharmacy will replace Omeprazole Dispo: Most likely to SNF in 2-3 days pending improved mental status versus comfort care VTE Prophylaxis: Sub-Q Heparin (Unfractionated) Resuscitation Status: DNR/DNI:Do Not Resuscitate/Intubate Attending Statement The patient was seen and examined together with Dr. Vieira on 10/05/16 and I agree with the history, exam and plan as outlined in the note above. Mary Kay Vieira DO Oct 05, 2016 13:48 Radha Turcios DO October 14, 2016 18:55
--- NOTE | 2016-10-05 14:26 | NUR ---
NUTRITION ASSESSMENT: ASSESS: Pt is an 85yo F admitted for non stemi and possible CHF exacerbation. Pt has been experiencing increased AMS and has not been tolerating much PO as she has not been able to follow commands. ST has evaluated pt and placed her on a Full Liquid diet with NT liquids. Pt does not follow directions well for swallowing. PO has been recorded at 0-50% of meals but pt has had minimal intake over the last week. PO avg is 15%. PMHX: CHF, CAD, HLD, HTN, T2DM, GERD, Alzheimer's LABS: Reviewed. Na 147, Cl 112, Bun 41, Leaf Coverer 1.02, Glu 241 MEDS: Reviewed. Insulin, lasix GI: BMx6 10/04 SKIN: Edwar 17 CURRENT WTS: 65.3kg, BMI 29.1kg/m2, admit wt 67.3kg DIET: Full Liquid, PO 0-50%. Avg PO intake over stay is 15% EST. NEEDS: Kcals: 1630-1960kcal/day (25-30kcal/kg) Pro: 65-80g/day (1.0-1.2g/kg) NUTRITION DIAGNOSIS: 1.) Inadequate oral intake related to AMS as evidence by poor PO intake of 0-50% and inability to follow swallowing commands 2.) Chew/swallow difficulty related to AMS as evidence by need for full liquid, NT diet order and ST reporting that pt does not follow directions well when instructed to swallow NUTRITION INTERVENTION: 1.) Continue diet per ST 2.) Continue Glucerna on L tray and encourage PO intake when appropriate to follow swallowing commands. MONITOR / EVAL: PO, ST, labs, GI, wt, AMS, POC, nutrition status. Will continue to monitor per high nutrition status.
--- NOTE | 2016-10-05 15:29 | NUR ---
P: Agitation I: Pt very agitated and picking at lines and things. Eyes are closed and not really following commands. Family at bedside and wanting something given to help her not be so anxious. Haldol 2mg IV given. Pt sleeping except with turns and activity. Pt opens her eyes and reaches for the railing when turned. IV infiltrated and new IV site started by IV therapy. NS 50cc/hr. Straight cath done to sent UA to lab. Urine showed culture indicated and IV ABX ordered, still waiting to receive it from pharmacy. No pain medication given. Incontinent small loose BM x2. Hodan care given and cream applied. Afebrile. Blood sugars with sliding scale insulin. Pt is not taking po. Incontinent of mark urine. 3L/NC with sats stable. NSR with IVCD. Family updated on pt's condition and plan of care. E: Stable S: Pt sleeping on and off and much less anxious. No restraints needed and frequent rounding. Family at bedside. Addendum: 10/05/16 at 1712 by ROSALINO ISSA RN Pt awakened with turn at 1630. Pt awake recognized her daughter. Ice chips given and pt stated "thank you dionne". here to see pt. Pt not agitated and states she is in the hospital. states pt can go home if she stays this way. Family at bedside.
[2016-10-05] MEDS: cefTRIAXone Inj 2,000 MG in Dextrose 5% Minibag Plus 50 ML IV SCH (15:42)
--- NOTE | 2016-10-05 16:28 | PCM.ADCARE ---
Advance Care Planning Note Purpose of Encounter: To establish goals of care Parties in Attendance: The patient, the patient's son Gordon (power of real estate associate attorney), and 2 daughters Decisional Capacity: The patient currently has poor decision-making abilities secondary to both dementia and acute encephalopathy and her son (Gordon) is her power of real estate associate attorney. Goals of Care Determinations: The patient seems to be steadily declining and her encephalopathy seems to be worsening this is most likely secondary to the TIA that was experienced. It was explained to the family that the patient did have an NSTEMI, which made her susceptible to TIA which she experienced over the weekend. Due to the fact that we are unable to obtain an MRI of the head because of the patient's pacemaker a true CVA cannot be determined except based on clinical observation. It is felt that the patient most likely had a TIA and possible CVA due to the fact that the patient has increasing encephalopathy and now has dysphagia. The patient is only able to swallow thickened liquids whereas prior to this event she was eating regular diet. The family is aware that the patient may not recover from this and if she is not going to recover than they are okay with making her comfort care and sending her back to the care home to live out the rest of her days comfortably. However at this time they would like us to continue working the patient up for any infectious causes as previously she has had infections causing encephalopathy. Once all infectious causes have been ruled out at that time they will decide to make the patient comfort care. The patient still remains DNR/DNI with limitations for continued workup, antibiotics , IV fluids, medications. CODE STATUS: DNR/DNI with limitations continue antibiotics, blood transfusions, all other medications and IV fluids Time Spent Adv.Care Plannin minutes Date of Service Oct 04, 2016 Date of Hospital Admission: Sep 28, 2016 at 23:02 Radha Turcios DO Oct 05, 2016 16:28
[2016-10-05] MEDS ORDERED: Haloperidol 5 mg/mL Inj IV PRN (16:30)
[2016-10-06] VITALS (11 sets, daily range): BP systolic 131–155; BP diastolic 76–91; PULSE 90–109; RESP 19–42; O2SAT 41–98
[2016-10-06] MEDS: 0.9% Sodium Chloride 500 ML IV SCH (00:30)
[2016-10-06] MEDS: Sodium Chloride LOK Flush 10 mL Syringe IVFLUSH SCH ×4 (00:30→23:44)
--- NOTE | 2016-10-06 04:50 | NUR ---
Mentation/ Respiratory Pt nonverbal, [place] speaking at baseline however per son when pt does speak she is incoherent. no Po meds given do to mentation, inability to follow commands. Pt confused and incoherent with mumbled speech. Pt intermittently restless and fidgety overnight. Son at bedside. PRN Morphine given x2 for what appears to be discomfort/ restlessness. 2nd dose very effective and pt able to sleep. haldol not given as QTC prolonged. RT called to bedside to assess pt irregular breathing pattern. RT believed breathing is torsten stroke breathing pattern from her TIA/ CVA. Sp02 still maintained on 3 L NC.
[2016-10-06 04:52] LABS: BASOPHILS % (AUTO) 0.2 % (0-3); EOSINOPHILS % (AUTO) 0.1 % (0-5); Mean Corpuscular Hemoglobin 27.8 pg (27.0-35.0); Mean Corpuscular Volume 89.9 fL (81-100); NEUTROPHILS % (AUTO) 85.2 % (40-74); Platelet Count 227 bil/L (150-400)
[2016-10-06] MEDS: Pantoprazole 40 mg ER24 Tablet PO SCH (06:30)
[2016-10-06] MEDS: Fluticasone 0.05% 15 Spray/2 Gm 16 Gm Nasal Spray NASAL SCH (09:06)
[2016-10-06] MEDS: LacriLube S.O.P. 3.5 Gm Ophthalmic Ointment BOTH_EYES SCH ×3 (09:06→20:30)
[2016-10-06] MEDS: Insulin LISPRO 300 Unit/3 mL Inj SUBQ SCH ×2 (09:10→14:15)
--- NOTE | 2016-10-06 10:54 | NUR ---
Medications/Oxygen Unable to arouse pt for PO medications this am. Notified MD. Pt has intermittent arousability, unable to maintain for more than 2 seconds. Goes back to sleep immediately. Pt apneic with intermittent hyperventilation per report. Pt respiratory status remains the same. MD notified. Care continues.
[2016-10-06] MEDS: Naphazoline/Pheniramine 5 mL Ophthalmic Solution BOTH_EYES SCH ×2 (13:04→20:30)
--- NOTE | 2016-10-06 14:42 | PCM.PNMED ---
Subjective Date of Service Oct 06, 2016 Subjective Patient continues to steadily decline, she is not able to wake up, and she does not follow commands even though she does open her eyes for a brief moment. She is not taking her oral medications. Her family is by bedside. Exam Vital Signs Vital Sign - Last Date Time Temp Pulse Resp B/P Pulse Ox O2 Delivery O2 Flow Rate FiO2 10/06/16 13:42 36.7 90 19 131/79 93 Nasal Cannula 2.50 Intake and Output 10/05/16 10/05/16 10/06/16 Cumulative From/Thru 15:00 23:00 07:00 09/28/16 23:09 - 10/06/16 05:04 Intake Total 415 ml 588 ml 6364 ml Output Total 75 ml 3528 ml Balance 340 ml 588 ml 2836 ml Intake Oral 20 ml 0 ml 1090 ml IV Total 395 ml 588 ml 5274 ml Output Urine Total 75 ml 3525 ml Urine/Stool Mix 3 ml # Voids 2 3 25 # Bowel Movements 2 1 9 Exam General: Elderly woman laying in bed asleep, not able to wake up, not following commands Chest & Lungs: Expiratory wheezing anteriorly bilaterally, labored breathing Cardiovascular: Regular Rate/Rhythm, +S1/S2 Abdomen: Non-tender, Non-distended, Normoactive bowel tones, Soft Extremities: No cyanosis/clubbing/edema bilaterally IVs and Medications Medications Reviewed: Medications were reviewed in detail Lab and Diagnostics Result Diagram: 10/06/1641410/06/16414 X-Rays, CTs and MRIs CT BRAIN WITHOUT CONTRAST IMPRESSION: 1. No acute intracranial abnormalities. Periventricular and deep white matter chronic small vessel ischemic change. 2. 2.2 x 2.8 x 1.9 cm meningioma adjacent to the medial right frontal lobe appears slightly larger since August 2016. Dictated and approved by: Addison Bean M.D. on 10/01/2016 at 10:59 X-RAY CHEST ONE VIEW IMPRESSION: 1. Decreased lung volumes and findings suspicious for increased fluid overload. 2. Increased basilar radiopacity suggesting increased consolidation or atelectasis. Dictated and approved by: Sallie Burns M.D. on 10/05/2016 at 9:21 [place] [facility] cardiomegaly, venous congestion 12-lead ECG SR with LBBB and borderline ST elevations in aVR, V1, V2 Cardiac Echo Impressions Echocardiogram Report Interpretation Summary The left ventricle is moderately dilated. Left ventricular systolic function is severely reduced. The ejection fraction is estimated to be 20-25%. There is moderate to severe global hypokinesis with akinesis along the inferior and inferolateral wall. Assessment of diastolic parameters suggests a pseudonormalization pattern, consistent with elevated filling pressures. The E/E' ratio is severely increased, suggesting possible increased filling pressures. The right ventricle is borderline dilated. There is a pacemaker lead in the right ventricle. Right ventricular systolic function is moderately reduced. The right ventricular systolic pressure is estimated at 67 mmHg assuming a right atrial pressure of 8 mm Hg. The left atrium is moderately dilated. The right atrium is mildly dilated. There is severe mitral regurgitation. There is mild to moderate aortic regurgitation. There is no other significant valvular heart disease. The aortic root is normal size. Reading Physician:PM Assessment & Plan 85 year old woman with complex medical history including congestive heart failure, coronary artery disease, hyperlipidemia, hypertension, diabetes mellitus type 2 presenting with dyspnea at rest, non ST elevated miocardial infarction with elevated troponin, possible congestive heart failure exacerbation. Acute confusion and altered mental status. Not present on admission. Ongoing -Unclear exact etiology but possible acute hospital psychosis, acute delirium vs acute encephalopathy vs acute TIA/CVA -Family notes that patient has had similar issue in prior hospitalization that was due to underlying infection -Increased white blood count today secondary to infectious process versus end of life -Physical therapy recommended to return patient to [facility] -Continue with supportive care Acute hypernatremia. Not present on admission. Ongoing -D5W IV at 200 cc/hr, 2.5 L continuous -Repeat labs at 5 pm and in the morning Leukocytosis, not present on admission. Improving -Most likely secondary to infectious process versus end of life -Repeat chest x-ray revealed increased fluid overload (he should not looks dry, however) and increased bibasilar consolidations versus atelectasis -Repeat urine analysis revealed possible urinary tract infection -Treating with ceftriaxone 2g daily IV Acute [id number] myocardial infarction, present on admission. Active -Cardiology consulted, continue aspirin,and Lipitor -Given her dementia, not a good candidate for interventional therapy -ECHO revealed ejection fraction of 20-25% and moderate to severe global hypokinesis with akinesis along the inferior and inferolateral wall -Discussed with patient's son ([email or web address]) regarding her AICD and he plans to discuss with rest of family to decide if turn AICD off or not given her deteriorating condition Acute kidney injury, present on admission. Active -Increase in creatinine and BUN this morning is likely due to dehydration -Continue IV fluids, discontinue Lasix -Continue to monitor Cardiomyopathy, present on admission. Stable -Patient euvolemic now -Continue current meds Hypertension, chronic. Stable -Not well controlled at present due to patient not being able to take oral meds -Labetalol 10 mg IV once -Continue to monitor blood pressure Diabetes mellitus type 2, present on admission. Active (uncontrolled) -On Lantus 16 units at home before bedtime, on 8 units here, increased to 15 today -Medium correctional dose insulin -A1c 9.5% Hyperlipidemia, chronic. Stable -Lipids are at goal even though patient is not on statin therapy -Lipitor 10 mg daily as recommended by cardiology Dry eyes, present on admission. Stable - Refresh eye drops and ketotifen fumarate eye drops available to patient Gastroesophageal reflex, present on admission. Stable -Pharmacy will replace Omeprazole Dispo: Most likely to SNF with comfort care in 2-3 days pending improved mental status Pain Evaluation: Adequate Pain Control VTE Prophylaxis: Sub-Q Heparin (Unfractionated) Resuscitation Status: DNR/DNI:Do Not Resuscitate/Intubate Attending Statement The patient was seen and examined together with Dr. Vieira on 10/06/2016 and I agree with the history, exam and plan as outlined in the note above. . Mary Kay Vieira DO Oct 06, 2016 14:41 Santi Hand MD Oct 09, 2016 07:24
[2016-10-06] MEDS: Dextrose 5% 1,000 ML IV SCH ×3 (15:16→23:44)
[2016-10-06] MEDS: cefTRIAXone Inj 2,000 MG in Dextrose 5% Minibag Plus 50 ML IV SCH (15:20)
--- NOTE | 2016-10-06 15:46 | NUR ---
Pt has been unable to participate in skilled PT interventions for 3 days and is now discharged from PT caseload. Please re-order if appropriate.
[2016-10-06] MEDS ORDERED: Glucose 40% Oral Gel 15 Gm Tube PO PRN (16:50)
[2016-10-06] MEDS ORDERED: Insulin LISPRO 300 Unit/3 mL Inj SUBQ SCH (17:30)
--- NOTE | 2016-10-06 17:36 | NUR ---
Arousal Unable to arouse pt most of shift. Pt opened eyes last Q2 turn at approximately 1700. Pt unable to blink on command or squeeze hands with eyes opened. Notified MD. Care continues.
[2016-10-06] MEDS ORDERED: Insulin Human REGular Inj 100 UNIT in 0.9% Sodium Chloride-Pha MIX 100 ML IV SCH (18:33)
--- NOTE | 2016-10-06 18:46 | NUR ---
Breathing Pt breathing changed at approximately 1630. Pt tachypneic SPO2 93%. MD notified. Care continues.
[2016-10-06] MEDS ORDERED: Furosemide 10 mg/mL 4 mL Inj IVPUSH ONE (19:40)
--- NOTE | 2016-10-06 20:12 | ABG ---
DateTimeAnalyzed 20:08:00 -_ pH ____7.368 - 7.350 7.450 pCO2 ___34.5__ -mmHg 35.0 45.0 pO2 ___72.7__ -mmHg 69.0 116 HCO3- ___19.4__ -mmol/L 22.0 26.0 ABE ___-4.8__ -mmol/L -2.0 2.0 tHb ___11.9__ -g/dL O2Hb ___91.2__ -% COHb ____1.1__ -% MetHb ____0.9__ -% sO2 ___93.1__ -% FIO2 ___75.0__ -% Drawn By MK - Date/Time Notified____ 20:11:00 -_ Liter_Flow ___15.0__ -L/min Oxygen Device 1 __oxymask - B 754 -mmHg tO2 ___15.3__ -Vol% Justus test _Positive -
--- NOTE | 2016-10-06 20:41 | DRSVH ---
PROCEDURE: X-RAY CHEST ONE VIEW, PORTABLE ([id number]) INDICATIONS: 85 year-old female with shortness of breath. TECHNIQUE: One view of the chest was acquired. COMPARISON: [facility], CR, XR CHEST 1VW (PORTABLE), 10/05/2016, 8:33. [facility], CR, XR CHEST 1VW (PORTABLE), 10/02/2016, 17:26. [facility], CR, XR CHEST 1VW (PORT ABLE), 09/30/2016, 12:26. FINDINGS: Surgical changes and devices: Left chest wall dual chamber pacer/ICD is again noted, as well as froylan cystectomy clips. Lungs and pleura: No pleural effusions or pneumothorax. Bilateral perihilar opacities persist, along with enlarged and indistinct pulmonary vasculature. More localized right lower lung airspace opacity is also now apparent. Mediastinum: Mediastinal contours appear normal. Moderate cardiomegaly is unchanged. There is aorti c atherosclerosis. Bones and chest wall: No suspicious bony lesions. Overlying soft tissues appear unremarkable. IMPRESSION: 1. Constellation of findings consistent with congestive heart failure in the setting of moderate card iomegaly. 2. Findings worrisome for superimposed right lower lung aspiration or pneumonia. Dictated by: Addison Bean M.D. on 10/06/2016 at 20:32 Approved by: Addison Bean M.D. on 10/06/2016 at 20:35
[2016-10-06] MEDS ORDERED: Insulin GLARgine 100 Unit/mL Syringe SUBQ SCH (21:00)
[2016-10-06] MEDS ORDERED: Insulin REGULAR SS Med-Dose SUBQ PRN (22:40)
[2016-10-06] MEDS ORDERED: Acetaminophen IV 1,000 MG in IV Premix 1 EACH IV PRN (22:50)
--- NOTE | 2016-10-06 23:58 | NUR ---
Respiratory: Upon initial assessment pt found to be obtunded with a RR in the high 40s, and an o2 sat low 80s on 6 L NC -HR tachy in the low 100s. Pt immediately placed on [address] Hurley paged and at bedside to assess pt. Initially IV lasix ordered, however MD states to hold off on administering Lasix as he wanted a STAT ABG and CXR. ABG and CXR resulted- MD notified and reviewed. order received to withhold Lasix at this time and start pt on high flow. Pt stated on high flow 40L and 50%. Sat monitored via [employer] and is maintained in the mid 90s. RR continues to be elevated, shallow and labored. order received for 2 MG IV morphine -given with good results. Pt appears to be breathing more comfortably however RR still elevated in 40s- Dr. Hurley aware. Blood glucose 270s- MD aware- order received to not initiate insulin gtt- regular insulin sliding scale eventually ordered. Pt noted to be diaphoretic with low grade axillary temp of 99.7. Dr. Fleming made aware- order received for IV Tylenol, med given. Pt remains obtunded, non responsive to verbal or tactile stimulus. some facial grimacing noted with repositioning. Dr. Hurley contacted for additional dose of IV morphine @2230. After repositioning pt became again very labored and gargled with breathing. post morphine pt appears less labored however continue to be tachypneic. care continues. Addendum: 10/07/16 at 0336 by ANTONELLA KUMARI RN Increased rattling/ secretions with respirations. MD DR. Hurley notified- order received for scopolamine patch, md states he will come to bedside and assess pt. Addendum: 10/07/16 at 0426 by ANTONELLA KUMARI RN Dr. Hurley at bedside to discuss plan of care with family. Spoke to son Gordon OLMSTEAD regarding pt decline and starting comfort care measures. Sp02 decreasing to mid 80s on high flow @ 40l @ 50%. RT to bedside. high flow increased-Pt currently maxed out on high flow, sat low 90s, RR 30-40s. 2mg IVP Morphine given per Dr. Hurley order. Family currently discussing comfort care. Spoke to son who states he would like to go forward with comfort care. Message relayed to along with Sons phone number, awaiting orders from .
[2016-10-07] MEDS ORDERED: Piperacillin-Tazo 3.375 Gm Inj 3.375 GM in Dextrose 5% Minibag Plus 50 ML IV SCH (00:30)
[2016-10-07 01:00] VITALS: RESP 32; O2SAT 98
[2016-10-07] MEDS ORDERED: Piperacillin-Tazo 3.375 Gm Inj 3.375 GM in Dextrose 5% Minibag Plus 50 ML IV ONE (01:00)
[2016-10-07 02:59] VITALS: BP 123/74; PULSE 75; RESP 42; O2SAT 99
[2016-10-07 04:01] VITALS: RESP 44; O2SAT 92
[2016-10-07] MEDS: Dextrose 5% 1,000 ML IV SCH (05:10)
[2016-10-07] MEDS ORDERED: LORazepam 2 mg/mL Inj ANXIETY/AGIT IVPUSH PRN (05:10)
[2016-10-07] MEDS ORDERED: Haloperidol 5 mg/mL Inj IVPUSH PRN (05:10)
[2016-10-07] MEDS ORDERED: Ondansetron 2 mg/mL 2 mL Inj IVPUSH PRN (05:10)
[2016-10-07] MEDS ORDERED: LORazepam 100 mg/100 mL NS 100 MG in IV Premix 1 EACH IV SCH (05:10)
[2016-10-07] MEDS ORDERED: Artificial Tears 15 mL Ophthalmic Solution AFFECT_EYE PRN (05:10)
[2016-10-07] MEDS ORDERED: Morphine 100 mg/100 mL NS 100 MG in IV Premix 1 EACH IV SCH (05:10)
[2016-10-07] MEDS: Pantoprazole 40 mg ER24 Tablet PO SCH (06:30)
[2016-10-07 08:00] VITALS: RESP 30; O2SAT 92
[2016-10-07] MEDS: Sodium Chloride LOK Flush 10 mL Syringe IVFLUSH SCH ×3 (08:30→22:05)
[2016-10-07] MEDS: LacriLube S.O.P. 3.5 Gm Ophthalmic Ointment BOTH_EYES SCH ×3 (10:36→20:30)
--- NOTE | 2016-10-07 10:40 | NUR ---
Palliative Care Palliative Care received verbal order from Dr Hand 10/07/16 to assist with goals of care. Patient is an 85 year old woman with end stage CHF. She was admitted 09/28/16. Per Dr Scanlon, patient has been transitioned to comfort care. Patient resides at [facility]. Dewayne "Gordon" Vince (son/DPOA) [phone] Jazzy Khoa (daughter) [phone] Palliative Care to follow. Lisa Cummings
--- NOTE | 2016-10-07 10:59 | NUR ---
Palliative care note D/A: Palliative care referral received today from Dr. Hand to assist with probable end of life. Pt noted to have been admitted from [facility]. Dr. Scanlon is seeing pt/family and working to turn off pt AICD. Pt currently on a morphine drip and is expected to be comfort care and in the hospital. Phone call from pt dtr Anne Chavez. She requests to speak with Dr. Scanlon and notes that her cell number is [phone]. Dr. Scanlon aware of above. P: Palliative care to follow. Veronica HATCH, CCM
--- NOTE | 2016-10-07 11:50 | PCM.CONPAL ---
Date of Service Oct 07, 2016 Date of Hospital Admission: Sep 28, 2016 at 23:02 Date of Palliative Consult: Oct 07, 2016 Requesting Provider: Santi Hand MD Reason Palliative Care Consult: w/d Life Prolonging Interventions, Other ( comfort care) Hospital Unit @time of consult: Progressive Care Palliative Care Recommendation 85-year-old female with history of Alzheimer's dementia, HFrEF, coronary artery disease, etc. admitted with NSTEMI, and now with progressive decrease in mental status. Per family wishes, transitioning to comfort care. Palliative medicine consult to assist with management at end-of-life. Over the course of the day I made multiple visits to the patient's room, checking in with family regarding their concerns and wishes. They remain comfortable with the process and ultimate outcome. Summary of palliative recommendations: I spoke with Je Pizano of cardiology- he will bring over a programming box and shut off the ICD component of her pacemaker. Until that occurs, I obtained a magnet from [facility] which is at her nurse's station next to her chart, and I instructed both her nurse and her resident hospitalist how to use the magnet to shut off the ICD if it fired. -Symptom management (Pain/other)- morphine drip at 1 mg per hour with titration per protocol. Nurses have additional orders for bolus MS 4mg Q15 min prn acute distress or restlessness- then contact me by phone for adjustments in drip rate. Lorazepam drip also ordered per protocol, as well as other routine end-of -life care medications. Family was particularly concerned about her upper airway sounds-we talked about this and I reassured them that this was less distressing to the patient then to them, but I have also ordered oral suctioning as needed as well as appropriate medications. Continue other medications and treatments per end-of-life care protocol. Discontinue all other medications including antibiotics, IV fluids, cardiac medications, etc. -DPOA/Advanced Directives/POLST- DO NOT RESUSCITATE/DO NOT INTUBATE/comfort care. I expect that she will in the hospital in the next 24-48 hours -Family/emotional support- multiple family members present with mutual support. Palliative will continue to follow closely as well. -Spiritual support- offered. [place] contacted and will consult. Additional Medical Diagnoses with primary management by Hospitalist team include : Acute confusion and altered mental status. Not present on admission. Ongoing Acute hypernatremia. Not present on admission. Ongoing Leukocytosis, not present on admission. Improving Acute [id number] myocardial infarction, present on admission. Active Acute kidney injury, present on admission. Active Cardiomyopathy, present on admission. Stable Hypertension, chronic. Stable Diabetes mellitus type 2, present on admission. Active (uncontrolled) Hyperlipidemia, chronic. Stable Dry eyes, present on admission. Stable Gastroesophageal reflex, present on admission. Stable Problems: End of Life Preferences Comfort care Disposition Expected that the patient will here in the hospital in the next 24-48 hours Resuscitation Status Resuscitation Status: DNR/DNI:Do Not Resuscitate/Intubate (comfort care) POLST Updates/Changes Previous POLST?: No . Advanced Care Planning Address: Comfort care Pain: Mild Symptom management: Agitation, Dyspnea Pt History History of Present Illness Per admission H&P: 85yo woman who resides at [facility] was sent to [facility] from there with increasing work of breathing. She has history of CAD, s/p stenting, CHF (type unknown), pacemaker, DM2. At [facility] she had an EKG remarkable for LBBB, borderline anterior wall ST elevations, troponin of 3.67, BNP of 2317, her vital signs were stable except for RR of 30. They tried to give her an aspirin but she choked on it and coughed it up. On admission here her vitals are T 36.4, HR 69, RR 18 with O2 sat of 97 on 3L, BP 130/72. It is not clear if she is on home oxygen chronically. She was admitted and treatment was undertaken for presumed non-STEMI. She was seen in consultation by Dr. Gamez of cardiology who did not feel that invasive intervention was indicated. Evaluation revealed significant HFrEF with ejection fraction 20% as well as significant wall motion abnormalities. Unfortunately, despite appropriate medical care, she has continued to deteriorate and over the last several days family has made decision to transition to comfort care. Palliative medicine was consulted to assist in transition to comfort/end-of- life care. Prior to visiting patient, reviewed records in the EMR in detail, spoke with her medical team members and with her bedside nurse. When I arrived, multiple family members were in the room at bedside. We spoke at length. Patient is essentially unresponsive- occasionally appears slightly restless and grimaces but no other responses were meaningful activity. Family members are in agreement that their primary goal is for comfort. We talked about various approaches to comfort/end-of-life care- they were not comfortable with decreasing or discontinuing her oxygen supplementation initially but otherwise were agreeable to discontinuation of other medications whose goals were not specifically comfort. They had a number of questions about her medical conditions and diagnoses and we spent significant time, spread over several visits through the day, answering their questions and providing additional information for which they were very appreciative. Past Medical History Significant PMH Noted: CHF CAD HLD HTN DM2 on insulin GERD Alzheimer's Disease Surgical History s/p Stent Pacemaker Some abdominal surgery, unknown type Social History Occupation: Retired; Family Members Issues: Family members are all in agreement that their goal is purely patient comfort Social Support: Excellent support from multiple local family members Living Situation: [facility] Spiritual Support Spiritual Support Offered POLST at Time of Admission Previous POLST?: No Allergy Allergies Reviewed: Yes Medications Current Medications: Current Medications Ceftriaxone Sodium/Dextrose/ Water 50 ml @ 100 mls/hr Q24H IV Last administered on 10/06/16 15:20; Admin Dose 100 MLS/HR; Start 10/05/16 at 14:20 ; Stop 10/07/16 at 09:29; Status DC Haloperidol Lactate ABOVE Q1H PRN IV; Start 10/05/16 at 16:30; Stop at 09:29; Status DC Sodium Chloride 1,000 ml @ 50 mls/hr Q20H IV; Start 10/06/16 at 07:55; Stop at 14:13; Status DC Dextrose/Water 1,000 ml @ 50 mls/hr Q20H IV Last administered on 10/06/16 23: 44; Admin Dose 50 MLS/HR; Start 10/06/16 at 14:10; Stop 10/07/16 at 09:29; Status DC Insulin Glargine 15 unit HS SUBQ; Start 10/06/16 at 21:00; Stop 10/06/16 at 21: 00; Status DC Insulin Human Lispro Nutritional Dose to be given pr... [facility] SUBQ Last administered on 10/06/16 17:08; Admin Dose 7 UNIT; Start 10/06/16 at 17:30; Stop 10/06/16 at 18:34; Status DC Insulin Human Regular/Sodium Chloride 101 ml @ 0 mls/hr Q0M IV; Start 10/06/16 at 18:33; Stop 10/06/16 at 20:25; Status DC Dextrose/Water 25 ml ONCE PRN IV; Start 10/06/16 at 22:35; Stop 10/07/16 at 09: 29; Status DC Insulin Human Regular * MEDIUM Dose Insu... PRN PRN SUBQ Last administered on 23:09; Admin Dose 5 UNIT; Start 10/06/16 at 22:40; Stop 10/07/16 at 09: 29; Status DC Acetaminophen 1000 mg/Premix 100 ml @ 400 mls/hr Q6H PRN IV Last administered on 10/06/16 23:08; Admin Dose 400 MLS/HR; Start 10/06/16 at 22:50; Stop at 22:51 Piperacillin Sod/ Tazobactam Sod 3.375 gm/Dextrose/ Water 50 ml @ 12.5 mls/hr Q8 IV; Start 10/07/16 at 00:30; Status UNV Piperacillin Sod/ Tazobactam Sod/ Dextrose/Water 50 ml @ 12.5 mls/hr Q12H IV; Start 10/07/16 at 13:00; Stop 10/07/16 at 13:00; Status DC Scopolamine 1.5 mg Q3D PRN TOPICAL Last administered on 10/07/16 03:52; Admin Dose 1.5 MG; Start 10/07/16 at 03:45; Stop 10/07/16 at 09:55; Status DC Lorazepam 1 mg Q1H PRN IVPUSH; Start 10/07/16 at 05:10 Haloperidol Lactate PRN hyperactive delirium, psychomo... Q1H PRN IVPUSH; Start 10/07/16 at 05:10 Ondansetron HCl Start with 4 mg, if ... Q4H PRN IVPUSH; Start 10/07/16 at 05:10 ; Stop 10/07/16 at 09:30; Status DC Atropine Sulfate Start with 2 drops, if ... Q1H PRN PO; Start 10/07/16 at 05:10 Artificial Tears 1 drop Q1H PRN AFFECT_EYE; Start 10/07/16 at 05:10 Diphenhydramine HCl 25 mg 25 mg Q4H PRN IVPUSH; Start 10/07/16 at 05:10; Stop 10/07/16 at 09:30; Status DC Morphine Sulfate/ Sodium Chloride 100 mg/Premix 100 ml @ 0 mls/hr Q0M IV Last administered on 10/07/16t 05:24; Admin Dose 1 MLS/HR; Start 10/07/16 at 05:10 Lorazepam/Sodium Chloride/Premix 100 ml @ 0 mls/hr Q0M IV; Start 10/07/16 at 05: 10 Glycopyrrolate Start with 0.2 mg, if ... Q1H PRN IVPUSH; Start 10/07/16 at 09: 30 Scopolamine 3 mg Q3D PRN TOPICAL; Start 10/10/16 at 03:45 Scheduled Carboxymethylcellulos/Glycerin (Refresh Optive Eye Drops) 15 Ml Drops 1 DROP BOTH_EYES TID Carvedilol (Carvedilol) 12.5 Mg Tablet 12.5 MG PO BID Cetirizine HCl (Zyrtec) 10 Mg Capsule 10 MG PO DAILY Cholecalciferol (Vitamin D3) (Vitamin D) 1,000 Unit Tablet 1,000 UNIT PO DAILY Fluticasone Propionate (Fluticasone Propionate) 50 Mcg/Actuation [place].susp 15.8 ML NS DAILY Insulin Glargine (Lantus U100 Insulin Vial) 100 Unit/Ml Vial 16 UNIT SUBQ HS Ketotifen Fumarate (Ketotifen Fumarate) 5 Ml Drops 1 DROP BOTH_EYES BID Lisinopril (Lisinopril) 5 Mg Tablet 5 MG PO DAILY Nitrofurantoin Monohyd/M-Cryst (MacroBid) 100 Mg Capsule 100 MG PO BID Omeprazole (Omeprazole) 20 Mg Capsule.dr 20 MG PO DAILY Scheduled PRN Acetaminophen (Acetaminophen) 325 Mg Tablet 325 MG PO BID PRN PRN For Pain Calcium Carbonate (Tums) 500 Mg Tab.chew 1,000 MG PO BID PRN PRN For Epigastric Distress Furosemide (Lasix) 40 Mg Tablet 40 MG PO Q2DAY PRN PRN CHF Ipratropium [place] (Ipratropium [place] 0.06% Nasal) 15 Ml [place] 1 SPRAY NS DAILY PRN PRN Allergies Loperamide HCl (Imodium A-D) 2 Mg Capsule 2 MG PO DAILY PRN PRN For Diarrhea or Loose Stool Objective Findings Exam Vital Sign - Last Date Time Temp Pulse Resp B/P Pulse Ox O2 Delivery O2 Flow Rate FiO2 10/07/16 04:01 82 44 92 Nasal Cannula 55 100 10/07/16 02:59 37.2 123/74 Intake and Output 10/06/16 10/06/16 10/07/16 Cumulative From/Thru 15:00 23:00 07:00 09/28/16 23:09 - 10/07/16 05:24 Intake Total 570 ml 1292 ml 8226 ml Output Total 3528 ml Balance 570 ml 1292 ml 4698 ml Intake Oral 60 ml 0 ml 1150 ml IV Total 510 ml 1292 ml 7076 ml Output Urine Total 3525 ml Urine/Stool Mix 3 ml # Voids 2 3 30 # Bowel Movements 0 9 Objective Frail appearing elderly woman resting in bed. Pale. Skin is cool and dry. High flow nasal cannula oxygen in place. HEENT exam otherwise without acute abnormalities. No masses in the neck. Lungs with breath sounds mostly scared by upper airway noise. Heart sounds distant and regular. Abdomen soft and benign. Extremities without pitting edema. Neurologic exam extremely limited by sedation. Lab/Diagnostics Lab and Imaging results reviewed in detail in EMR. Time spent Total time 105 minutes; >50% face to face with patient and family, providing counselling regarding plans and recommendations, and in care coordination with her medical teams. Of the above total time, 70 minutes counseling for advanced care planning with the patients family spread across multiple visits throughout the day Adrián Scanlon MD Oct 07, 2016 11:50
[2016-10-07] MEDS: Glycopyrrolate 0.2 MG/ML 1mL Inj IVPUSH PRN ×5 (12:18→20:41)
--- NOTE | 2016-10-07 12:26 | NUR ---
Morphine/Glycopyrrolate Per MD communication administered 4 mg Morphine Sulfate IV bolus push at 1058, pt resting. Waited for pharmacy to send Glycopyrrolate. Administered 0.2 mg at 1220 per order for secretions. Care continues.
[2016-10-07 13:00] VITALS: RESP 30; O2SAT 92
[2016-10-07] MEDS ORDERED: Piper-Tazo 3.375 Gm/50 mL D5W Minibag Plus - Q8H over 4 hrs IV SCH ×2 (13:00)
[2016-10-07] MEDS: Atropine 1% 5 mL Ophthalmic Solution PO PRN ×4 (14:09→21:57)
--- NOTE | 2016-10-07 14:33 | NUR ---
Morphine/Ativan/O2 Administered Morphine Sulfate 4mg IV bolus push. Increased Morphine drip rate now at 2 mLs/hour. Increased Ativan drip rate now at 2 mLs/hr. MD in room during bolus and increase. RT called to suction per family request. Suction successful. Pt on 3 L NC for comfort. Family present in room. Care continues.
--- NOTE | 2016-10-07 16:07 | NUR ---
Medications Pt struggling with breathing at approximately 1610. MD in present in room; Increase Morphine now to 3 mLs/hr. Increase Ativan now to 3 mLs/hr. Bathed and changed pt with VEST [employer]ER. Care continues.
--- NOTE | 2016-10-07 16:41 | NUR ---
spiritual care: pall care referral caring visit and prayer. family very attentive (rubbing pt's feet) and appreciative of support. very expressive of contentment of care.
--- NOTE | 2016-10-07 17:35 | NUR ---
Social Work: Updating Note D: Pt discussed in am rounds. Pt's family has chosen to transition the pt to comfort care. Palliative care MD estimates that the pt will likely within 24-48 hours. Family is present and is at bedside. [employer] briefly met with pt's family to provide emotional support and [place] services. Family is very appreciative of support and very attentive to pt's care. A: Pt who is comfort care at this time. P: Anticipate pt to at [facility] within the next 24-48 hours. PORTILLO Lucero
--- NOTE | 2016-10-07 17:56 | PCM.PNMED ---
Subjective Date of Service Oct 07, 2016 Subjective Over the night patient's family has chosen to transition the patient to comfort care. We anticipate patient to within 24-48 hours. Family is present and is at bedside at all times. Patient is on morphine sulfate and ativan drip and glycopyrrolate. Exam Vital Signs Vital Sign - Last Date Time Temp Pulse Resp B/P Pulse Ox O2 Delivery O2 Flow Rate FiO2 10/07/16 13:00 82 30 92 Nasal Cannula 55 80 10/07/16 02:59 37.2 123/74 Intake and Output 10/06/16 10/06/16 10/07/16 Cumulative From/Thru 15:00 23:00 07:00 09/28/16 23:09 - 10/07/16 05:24 Intake Total 570 ml 1292 ml 8226 ml Output Total 3528 ml Balance 570 ml 1292 ml 4698 ml Intake Oral 60 ml 0 ml 1150 ml IV Total 510 ml 1292 ml 7076 ml Output Urine Total 3525 ml Urine/Stool Mix 3 ml # Voids 2 3 30 # Bowel Movements 0 9 Exam Patient is on comfort care Lab and Diagnostics Result Diagram: 10/06/16 0415 10/06/16 2200 X-Rays, CTs and MRIs CT BRAIN WITHOUT CONTRAST IMPRESSION: 1. No acute intracranial abnormalities. Periventricular and deep white matter chronic small vessel ischemic change. 2. 2.2 x 2.8 x 1.9 cm meningioma adjacent to the medial right frontal lobe appears slightly larger since August 2016. Dictated and approved by: Addison Bean M.D. on 10/01/2016 at 10:59 X-RAY CHEST ONE VIEW IMPRESSION: 1. Decreased lung volumes and findings suspicious for increased fluid overload. 2. Increased basilar radiopacity suggesting increased consolidation or atelectasis. Dictated and approved by: Sallie Burns M.D. on 10/05/2016 at 9:[address] [facility]: cardiomegaly, venous congestion 12-lead ECG SR with LBBB and borderline ST elevations in aVR, V1, V2 Cardiac Echo Impressions Echocardiogram Report Interpretation Summary The left ventricle is moderately dilated. Left ventricular systolic function is severely reduced. The ejection fraction is estimated to be 20-25%. There is moderate to severe global hypokinesis with akinesis along the inferior and inferolateral wall. Assessment of diastolic parameters suggests a pseudonormalization pattern, consistent with elevated filling pressures. The E/E' ratio is severely increased, suggesting possible increased filling pressures. The right ventricle is borderline dilated. There is a pacemaker lead in the right ventricle. Right ventricular systolic function is moderately reduced. The right ventricular systolic pressure is estimated at 67 mmHg assuming a right atrial pressure of 8 mm Hg. The left atrium is moderately dilated. The right atrium is mildly dilated. There is severe mitral regurgitation. There is mild to moderate aortic regurgitation. There is no other significant valvular heart disease. The aortic root is normal size. Reading Physician:PM Assessment & Plan 85 year old woman with complex medical history including congestive heart failure, coronary artery disease, hyperlipidemia, hypertension, diabetes mellitus type 2 presenting with dyspnea at rest, non ST elevated miocardial infarction with elevated troponin, possible congestive heart failure exacerbation. Acute confusion and altered mental status. Not present on admission. Ongoing -Unclear exact etiology but possible acute hospital psychosis, acute delirium vs acute encephalopathy vs acute TIA/CVA -Family notes that patient has had similar issue in prior hospitalization that was due to underlying infection -Increased white blood count today secondary to infectious process versus end of life -Physical therapy recommended to return patient to [facility] -Patient has been transitioned to comfort care today. ICD component of the pacemaker turned off -Patient is on morphine sulfate and ativan drip and glycopyrrolate Acute hypernatremia. Not present on admission. Ongoing -Discontinue D5W Leukocytosis, not present on admission. Improving -Most likely secondary to infectious process versus end of life -Repeat chest x-ray revealed increased fluid overload (he should not looks dry, however) and increased bibasilar consolidations versus atelectasis -Repeat urine analysis revealed possible urinary tract infection -Discontinue ceftriaxone Acute Qtv-PL-yjylwiqhp myocardial infarction, present on admission. Active -Cardiology consulted, continue aspirin,and Lipitor -Given her dementia, not a good candidate for interventional therapy -ECHO revealed ejection fraction of 20-25% and moderate to severe global hypokinesis with akinesis along the inferior and inferolateral wall Acute kidney injury, present on admission. Active -Increase in creatinine and BUN this morning is likely due to dehydration -Discontinue IV fluids, discontinue Lasix Cardiomyopathy, present on admission. Stable -Discontinue all current medications Hypertension, chronic. Stable -Discontinue all medications Diabetes mellitus type 2, present on admission. Active (uncontrolled) -Discontinue all medications Hyperlipidemia, chronic. Stable -Discontinue all medications Dry eyes, present on admission. Stable - Discontinue all medications Gastroesophageal reflex, present on admission. Stable - Discontinue all medications Patient status: Comfort Care Pain Evaluation: Adequate Pain Control Resuscitation Status: DNR/DNI:Do Not Resuscitate/Intubate Attending Statement The patient was seen and examined together with Dr. Vieira on 10/07/2016 and I agree with the history, exam and plan as outlined in the note above. . Mary Kay Vieira DO Oct 07, 2016 17:56 Santi Hand MD Oct 09, 2016 07:26 Resuscitation Status: DNR/DNI:Do Not Resuscitate/Intubate Mary Kay Vieira DO Oct 07, 2016 17:56 Dry eyes, present on admission. Stable - Refresh eye drops and ketotifen fumarate eye drops available to patient Gastroesophageal reflex, present on admission. Stable -Pharmacy will replace Omeprazole Dispo: Most likely to SNF with comfort care in 2-3 days pending improved mental status VTE Prophylaxis: Sub-Q Heparin (Unfractionated) Resuscitation Status: DNR/DNI:Do Not Resuscitate/Intubate Mary Kay Vieira DO Oct 07, 2016 17:56
--- NOTE | 2016-10-07 18:07 | NUR ---
Respiratory/Medications Pt breathing coarse and crackles, repositioned bed to 45 degree, turned pt to side, repositioned head. Notified MD. Morphine 4 mg IV bolus push. Increased Morphine rate now at 5 mg. Ativan rate remains at 3 mg. RT suctioning. Care continues.
--- NOTE | 2016-10-07 18:15 | NUR ---
Agonal Breathing Agonal breathing after suctioning by RT, repositioned pt, notified MD. Care continues.
[2016-10-07 21:25] VITALS: RESP 11
[2016-10-07] MEDS: LORazepam Oral Conc 2 mg/mL 30 mL Solution PO PRN (22:08)
--- NOTE | 2016-10-08 02:59 | NUR ---
IV access/ comfort care Upon initial assessment IV access noted to be infiltrated and leaking. IV therapy notified and there to assess pt. IV d/c. made aware no IV access available. Dr. Hurley discussed with pharmacy alternative routs for comfort measure medication. Oral Ativan and fentynal patch ordered. Pt deep suctioned per family request. Breathing irregular, and shallow, pt appears comfortable. family at bedside. care ongoing.
[2016-10-08] MEDS: LORazepam Oral Conc 2 mg/mL 30 mL Solution PO PRN (03:36)
[2016-10-08] MEDS: Atropine 1% 5 mL Ophthalmic Solution PO PRN (03:37)
[2016-10-08] MEDS ORDERED: LORazepam Oral Conc 2 mg/mL 30 mL Solution SL PRN (07:50)
[2016-10-08] MEDS ORDERED: Morphine 20 mg/mL Oral Syringe SL PRN (07:50)
--- NOTE | 2016-10-08 11:32 | NUR ---
Breathing Pt breathing labored with gurgling. RT called per family request. Care continues.
--- NOTE | 2016-10-08 11:52 | NUR ---
Medication Medication: Morphine 20 mg SL, Ativan 2 mg SL. Pt in respiratory distress, gurgling, furrowing brow. Medication given prior to NG suction by RT. Family present. Care continues.
[2016-10-08] MEDS ORDERED: HYDROmorphone 1 mg/mL Inj SUBQ PRN (12:50)
--- NOTE | 2016-10-08 13:20 | NUR ---
Medication Pt in distress furrowing eye brows, administering Dilaudid 1 mg subcutaneous per MD order. Care continues.
--- NOTE | 2016-10-08 13:25 | PCM.PALLBR ---
Palliative Care Recommendation 85-year-old female with history of Alzheimer's dementia, HFrEF, coronary artery disease, etc. admitted with NSTEMI, and now with progressive decrease in mental status. Per family wishes, transitioning to comfort care. Palliative medicine consult to assist with management at end-of-life. Over the course of the day I again made multiple visits to the patient's room, checking in with family regarding their concerns and wishes. They remain comfortable with the process and ultimate outcome. Summary of palliative recommendations: -Symptom management (Pain/other)- Family was particularly concerned about her upper airway sounds-we talked about this and I reassured them that this was less distressing to the patient then to them, but I have also ordered oral/NT suctioning as needed as well as appropriate medications. Loss of IV access- now will use SQ/SL meds for comfort. Orders adjusted. Continue other medications and treatments per end-of-life care protocol. Discontinued all other medications including antibiotics, IV fluids, cardiac medications, etc. -DPOA/Advanced Directives/POLST- DO NOT RESUSCITATE/DO NOT INTUBATE/comfort care. I expect that she will in the hospital in the next 24-48 hours -Family/emotional support- multiple family members present with mutual support. Palliative will continue to follow closely as well. -Spiritual support- offered. [place] contacted and will consult. Additional Medical Diagnoses with primary management by Hospitalist team include : Acute confusion and altered mental status. Not present on admission. Ongoing Acute hypernatremia. Not present on admission. Ongoing Leukocytosis, not present on admission. Improving Acute Ote-QQ-pxbgxirpt myocardial infarction, present on admission. Active Acute kidney injury, present on admission. Active Cardiomyopathy, present on admission. Stable Hypertension, chronic. Stable Diabetes mellitus type 2, present on admission. Active (uncontrolled) Hyperlipidemia, chronic. Stable Dry eyes, present on admission. Stable Gastroesophageal reflex, present on admission. Stable Problems: End of Life Preferences Comfort care Disposition Expected that the patient will here in the hospital in the next 24-48 hours Resuscitation Status Resuscitation Status: DNR/DNI:Do Not Resuscitate/Intubate POLST Updates/Changes Previous POLST?: No . Advanced Care Planning Address: Comfort care Pain: Mild Symptom management: Drowsiness/sleepiness, Agitation, Pain Total time 90 minutes; >50% face to face with patient and family, spread across multiple visits thru day, providing counselling regarding plans and recommendations, and in care coordination with her medical teams. Of above total time, 60 minutes counseling for advanced care planning with the patients family Palliative Brief Note Date of Service Oct 08, 2016 . Events of evening reviewed in detail in EMR and with [facility] staff Pt resting quietly this AM; later developed distress/dyspnea requiring additional care Multiple visits to bedside thru day, reassessing and visiting w patient's family. Also consulted w pharmacy for med/access support (e.g. [employer] mill recorder problems requiring pharmacy interventions) Patient finally resting comfortably again. Poor resp effort/status; anticipate her passing within 24 hours. Progressive UE puffiness; exam otherwise stable. Spoke at length w multiple family members on multiple occasions; answered questions and provided comfort/support A son was to have gone on cruise starting tomorrow; provided him with a letter documenting patient status. Adrián Scanlon MD Oct 08, 2016 13:25
--- NOTE | 2016-10-08 15:37 | NUR ---
TOD Pt at 1440, family present, notified present in room. All personal belongings sent home with family.
[2016-10-09] MEDS ORDERED: Morphine 20 mg/mL Oral Syringe SL PRN (12:00)
--- NOTE | 2016-10-09 12:01 | PCM.DC.MEX ---
Discharge Summary Date of Service Oct 09, 2016 Dates of Hospitalization Date of Hospital Admission Sep 28, 2016 at 23:02 Date of Expiration: Oct 08, 2016 Time of Expiration: 14:40 Providers: Admitting Physician: Fide Boudreaux DO Primary Care Physician: Yovani Attending Physician: Fide Boudreaux DO Diagnosis at Time of Acute confusion and altered mental status. Not present on admission. Ongoing Acute hypernatremia. Not present on admission. Ongoing Leukocytosis, not present on admission. Improving Acute Yls-GG-udjntxvcp myocardial infarction, present on admission. Active Acute kidney injury, present on admission. Active Cardiomyopathy, present on admission. Stable Hypertension, chronic. Stable Diabetes mellitus type 2, present on admission. Active Hyperlipidemia, chronic. Stable Dry eyes, present on admission. Stable Gastroesophageal reflex, present on admission. Stable Consultations Cardiology, Palliative Care Procedures XRay, CTs & MRIs CT BRAIN WITHOUT CONTRAST IMPRESSION: 1. No acute intracranial abnormalities. Periventricular and deep white matter chronic small vessel ischemic change. 2. 2.2 x 2.8 x 1.9 cm meningioma adjacent to the medial right frontal lobe appears slightly larger since August 2016. Dictated and approved by: Addison Bean M.D. on 10/01/2016 at 10:59 X-RAY CHEST ONE VIEW IMPRESSION: 1. Decreased lung volumes and findings suspicious for increased fluid overload. 2. Increased basilar radiopacity suggesting increased consolidation or atelectasis. Dictated and approved by: Sallie Burns M.D. on 10/05/2016 at 9:21 CXR done at [facility]: cardiomegaly, venous congestion ECG 12 Lead SR with LBBB and borderline ST elevations in aVR, V1, V2 Cardiac Echo Impression Echocardiogram Report Interpretation Summary The left ventricle is moderately dilated. Left ventricular systolic function is severely reduced. The ejection fraction is estimated to be 20-25%. There is moderate to severe global hypokinesis with akinesis along the inferior and inferolateral wall. Assessment of diastolic parameters suggests a pseudonormalization pattern, consistent with elevated filling pressures. The E/E' ratio is severely increased, suggesting possible increased filling pressures. The right ventricle is borderline dilated. There is a pacemaker lead in the right ventricle. Right ventricular systolic function is moderately reduced. The right ventricular systolic pressure is estimated at 67 mmHg assuming a right atrial pressure of 8 mm Hg. The left atrium is moderately dilated. The right atrium is mildly dilated. There is severe mitral regurgitation. There is mild to moderate aortic regurgitation. There is no other significant valvular heart disease. The aortic root is normal size. Reading Physician:ZOEY Brief History Per Admitting Physician: Fide Boudreaux DO: Very pleasant danish speaking only 85yo woman who resides at [facility] was sent to [facility] from there with increasing work of breathing. She has history of CAD, s/p stenting, CHF (type unknown), pacemaker , DM2. At [facility] she had an EKG remarkable for LBBB, borderline anterior wall ST elevations, troponin of 3.67, BNP of 2317, her vital signs were stable except for RR of 30. They tried to give her an aspirin but she choked on it and coughed it up. On admission here her vitals are T 36.4, HR 69 , RR 18 with O2 sat of 97 on 3L, BP 130/72. It is not clear if she is on home oxygen chronically. Per Palliative care: 85yo woman who resides at [facility] was sent to [facility] from there with increasing work of breathing. She has history of CAD, s/p stenting, CHF (type unknown), pacemaker, DM2. At [facility] she had an EKG remarkable for LBBB, borderline anterior wall ST elevations, troponin of 3.67, BNP of 2317, her vital signs were stable except for RR of 30. They tried to give her an aspirin but she choked on it and coughed it up. On admission here her vitals are T 36.4, HR 69, RR 18 with O2 sat of 97 on 3L, BP 130/72. It is not clear if she is on home oxygen chronically. She was admitted and treatment was undertaken for presumed non-STEMI. She was seen in consultation by Dr. Gamez of cardiology who did not feel that invasive intervention was indicated. Evaluation revealed significant HFrEF with ejection fraction 20% as well as significant wall motion abnormalities. Unfortunately, despite appropriate medical care, she has continued to deteriorate and over the last several days family has made decision to transition to comfort care. Palliative medicine was consulted to assist in transition to comfort/end-of- life care. Prior to visiting patient, reviewed records in the EMR in detail, spoke with her medical team members and with her bedside nurse. When I arrived, multiple family members were in the room at bedside. We spoke at length. Patient is essentially unresponsive- occasionally appears slightly restless and grimaces but no other responses were meaningful activity. Family members are in agreement that their primary goal is for comfort. We talked about various approaches to comfort/end-of-life care- they were not comfortable with decreasing or discontinuing her oxygen supplementation initially but otherwise were agreeable to discontinuation of other medications whose goals were not specifically comfort. They had a number of questions about her medical conditions and diagnoses and we spent significant time, spread over several visits through the day, answering their questions and providing additional information for which they were very appreciative. Hospital Course 85 year old woman with complex medical history including congestive heart failure, coronary artery disease, hyperlipidemia, hypertension, diabetes mellitus type 2 presenting with dyspnea at rest, non ST elevated miocardial infarction with elevated troponin, possible congestive heart failure exacerbation. Patient on 10/08/16 at 1440, family was present. Acute confusion and altered mental status. Not present on admission. Ongoing -Unclear exact etiology but possible acute hospital psychosis, acute delirium vs acute encephalopathy vs acute TIA/CVA -Family notes that patient has had similar issue in prior hospitalization that was due to underlying infection -Increased white blood count today secondary to infectious process versus end of life -Physical therapy recommended to return patient to [facility] -Patient has been transitioned to comfort care. ICD component of the pacemaker turned off -Patient was on morphine sulfate and ativan drip and glycopyrrolate Acute hypernatremia. Not present on admission. Ongoing -Discontinued D5W Leukocytosis, not present on admission. Improving -Most likely secondary to infectious process versus end of life -Repeat chest x-ray revealed increased fluid overload (he should not looks dry, however) and increased bibasilar consolidations versus atelectasis -Repeat urine analysis revealed possible urinary tract infection -Discontinued ceftriaxone Acute Art-GF-egtqnzzcb myocardial infarction, present on admission. Active -Cardiology consulted, continue aspirin,and Lipitor -Given her dementia, not a good candidate for interventional therapy -ECHO revealed ejection fraction of 20-25% and moderate to severe global hypokinesis with akinesis along the inferior and inferolateral wall Acute kidney injury, present on admission. Active -Increase in creatinine and BUN this morning is likely due to dehydration -Discontinued IV fluids, discontinue Lasix Cardiomyopathy, present on admission. Stable -Discontinued all current medications Hypertension, chronic. Stable -Discontinued all medications Diabetes mellitus type 2, present on admission. Active (uncontrolled) -Discontinued all medications Hyperlipidemia, chronic. Stable -Discontinued all medications Dry eyes, present on admission. Stable - Discontinued all medications Gastroesophageal reflex, present on admission. Stable - Discontinued all medications Patient status: Patient on 10/08/16 at 1440 while on comfort care. Exam Test 09/28/16 23:45 09/29/16 02:10 09/29/16 02:35 09/29/16 07:00 Hemoglobin A1c 9.5% (4.8-5.6) Hold Purple Top Tube Received (Received) Hold Blue Top Tube Received (Received) Hold Lucan Top Tube Received (Received) Hold Urine Received (Received) Troponin T 1.45ug/L (0.0-0.011) Triglycerides Level 79mg/dL (0-149) Cholesterol Level 117mg/dL (100-199) LDL Cholesterol, Calculated 65.200mg/dL (0-99) VLDL Cholesterol 15.800mg/dL HDL Cholesterol 36mg/dL (>39) Cholesterol/HDL Ratio 3.25 (0.0-4.4) Test 10/01/16 03:36 10/03/16 03:18 10/05/16 11:37 10/06/16 04:15 Activated Partial Thromboplast Time 60.2sec (22.8-33.0) Magnesium Level 1.7mg/dL (1.6-2.6) Procalcitonin 0.07ng/mL (0.00-0.08) Hold Lucio Top Tube Received (Received) Urine Color Dark yellow (YELLOW) Urine Appearance Hazy (CLEAR,HAZY) Urine pH 5.5 (5.0-8.0) Urine Specific [place] 1.030 (1.003-1.035) Urine Protein 30mg/dL (NEG,TRACE) Urine Glucose (UA) Negativemg/dL (NEGATIVE) Urine Ketones Negativemg/dL (NEGATIVE) Urine Occult Blood Negative (NEGATIVE) Urine Nitrite Negative (NEGATIVE) Urine Bilirubin Negative (NEGATIVE) Urine Urobilinogen 2mg/dL (NORMAL) Urine Leukocyte Esterase Trace (NEGATIVE) Urine RBC 0-2/hpf (0-2) Urine WBC 11-50/hpf (0-5) Urine Epithelial Cells Moderate/hpf (NONE-MOD) Urine Crystals None seen (NONE SEEN) Urine Bacteria Moderate/hpf (NONE-FEW) Urine Hyaline Casts None/lpf (NONE) Urine Granular Casts None seen (NONE SEEN) Urine Waxy Casts None seen (NONE SEEN) Urine Red Blood Cell Casts None seen (NONE SEEN) Urine White Blood Cell Casts None seen (NONE SEEN) Urine Mucus None seen (None Seen) Urine Trichomonas None seen (NONE SEEN) Urine Yeast None (NONE SEEN) Urinalysis Comment None Urine Culture Reflexed Indicated White Blood Count 13.2th/mm3 (3.8-10.1) Red Blood Count 4.07mil/mm3 (3.90-5.20) Hemoglobin 11.3g/dL (12.0-15.6) Hematocrit 36.6% (35.0-46.0) Mean Corpuscular Volume 89.9fL (81-100) Mean Corpuscular Hemoglobin 27.8pg (27.0-35.0) Mean Corpuscular Hemoglobin Concent 30.9% (32.0-37.0) Red Cell Distribution Width 14.9% (12.3-15.4) Platelet Count 227bil/L (150-400) Neutrophils (%) (Auto) 85.2% (40-74) Lymphocytes (%) (Auto) 10.2% (14-46) Monocytes (%) (Auto) 4.0% (4-12) Eosinophils (%) (Auto) 0.1% (0-5) Basophils (%) (Auto) 0.2% (0-3) Total Bilirubin 0.9mg/dL (0.0-1.2) Aspartate Amino Transf (AST/SGOT) 24U/L (0-50) Alanine Aminotransferase (ALT/SGPT) 17U/L (0-32) Alkaline Phosphatase 125U/L (25-165) Total Protein 6.0g/dL (6.4-8.4) Albumin 3.2g/dL (3.4-5.0) Calcitonin Level <2.0pg/mL (0.0-5.0) Test 10/06/16 22:00 Sodium Level 147mEq/L (134-144) Potassium Level 3.9mEq/L (3.5-5.2) Chloride Level 113mEq/L (97-108) Carbon Dioxide Level 18mmol/L (18-29) Blood Urea Nitrogen 62mg/dL (8-27) Creatinine 1.25mg/dL (0.57-1.00) Estimat Glomerular Filtration Rate 58mL/min (>59) Glucose Level 299mg/dL (60-99) Calcium Level 8.8mg/dL (8.5-10.1) Attending Statement The patient was discussed with Dr. Vieira on 10/08/2016 and I agree with the history as outlined in the note above. . copies to: Cr Lino MD; Betty Gamez MD, Oksana S DO Oct 09, 2016 12:01 Santi Hand MD Oct 09, 2016 16:43
== END 2016-10-08 14:40 | disposition expired ==
LOC: PCC 23:02
PROVIDERS: ADMIT Internal Medicine; ATTEND Internal Medicine
PROC: 4B02XSZ Measurement of Cardiac Pacemaker, External Approach (ICD-10-PCS; principal; 2016-09-30)
PROC: 4A033R1 Measurement of Arterial Saturation, Peripheral, Percutaneous Approach (ICD-10-PCS; 2016-10-06)
DX: I21.4 Non-ST elevation (NSTEMI) myocardial infarction (principal); G93.40 Encephalopathy, unspecified; N17.9 Acute kidney failure, unspecified; I42.9 Cardiomyopathy, unspecified; E87.0 Hyperosmolality and hypernatremia; G45.9 Transient cerebral ischemic attack, unspecified; I50.20 Unspecified systolic (congestive) heart failure; I25.10 Atherosclerotic heart disease of native coronary artery without angina pectoris; Z95.5 Presence of coronary angioplasty implant and graft; Z79.4 Long term (current) use of insulin; G30.9 Alzheimer's disease, unspecified; F02.80 Dementia in other diseases classified elsewhere, unspecified severity, without behavioral disturbance, psychotic disturbance, mood disturbance, and anxiety; Z95.0 Presence of cardiac pacemaker; K21.9 Gastro-esophageal reflux disease without esophagitis; E78.5 Hyperlipidemia, unspecified; Z66 Do not resuscitate; R47.81 Slurred speech; J30.2 Other seasonal allergic rhinitis; I10 Essential (primary) hypertension; E11.9 Type 2 diabetes mellitus without complications; D72.829 Elevated white blood cell count, unspecified; Z51.5 Encounter for palliative care